=== PATIENT | female | born 1995 | race Caucasian/White ===

== ENCOUNTER 2017-08-19 19:14 | Emergency (ER) | payer OTHER, SELFPAY ==
[2017-08-19 19:15] VITALS: BP 149/89; PULSE 82; RESP 16; TEMP 36.8; O2SAT 99; BMI 28.2
--- NOTE | 2017-08-19 19:30 | CT_ITS ---
STUDY: CT BRAIN WITHOUT CONTRAST REASON FOR EXAM: Female, 21 years old. Headache RADIATION DOSAGE (If Supplied By Facility): CTDIvol = ( 44.99 ) mGy, DLP = ( 796.11 ) mGycm TECHNIQUE: Transaxial CT imaging of the brain was performed without administration of intravenous contrast material. Individualized dose optimization techniques were used for this CT. COMPARISON: None. FINDINGS: Normal soft tissue structures. Normal calvarium. Normal size ventricles and extra-axial spaces for the patient's age. Normal white matter tracts of the cerebral hemispheres. Normal basal ganglia and thalami. Normal brainstem. Normal cerebellum. There is no intracranial hemorrhage. There are no findings of an acute ischemic infarction. Normal visualized paranasal sinuses. CT/Brain/Head without Contrast IMPRESSION: Normal unenhanced CT scan of the brain. Electronically Signed: Leighton Wadsworth MD at 20:20 EST , Service support ,
[2017-08-19] MEDS: proCHLORPERazine 10 MG/2 ML Vial IV (19:44)
[2017-08-19] MEDS: DiphenhydrAMINE 50 MG/ML Syringe 25 MG IV (19:44)
[2017-08-19] MEDS: Ketorolac 30 MG/ML Syringe IV (19:45)
[2017-08-19] MEDS: 0.9% Normal Saline 1,000 ML 1000 ML IV (19:45)
--- NOTE | 2017-08-19 20:25 | ED.VISSUMM ---
- ER Visit Summary Date of Service: 08/19/17 Chief Complaint: [Headache] History of Present Illness: The patient is a 21 F [presents to the emergency department with a headache that started around 10 AM. Patient states the headache came on rather suddenly. Patient rates it currently as a 6 or 7 out of 10. Patient describes it as left side of her head behind her left eye. Patient has had some nausea with it but no vomiting. Patient denies any photophobia. Patient tells me that she has headaches most every day however this 1 is different in that she has some numbness and tingling to the left side of her face. Patient denies any weakness in her extremities. She denies any visual changes. She has felt somewhat lightheaded and near syncopal with it. She denies recent illness or head trauma.] Physical Examination: [HEENT-PERRLA, EOMI. Cranial nerves II through XII grossly intact. TMs clear. Mucous membranes moist. No adenopathy. Cardiovascular-regular rate and rhythm without murmur or ectopy Lungs-clear to auscultation, chest wall stable without crepitus or subcu emphysema Abdomen-normoactive bowel sounds, soft, nontender, no rebound or rigidity, no peritoneal signs. Neuro exam-finger to nose and heel to angel testing within normal limits, negative Romberg, negative pronator drift, fundi benign Extremities-intact ?4, normal range of motion, normal pulses, atraumatic] Test Results: [CT scan of the brain without contrast was normal] Emergency Department Course and Treatment: [Patient had a liter normal saline fluid bolus given as well as Compazine 10 mg IV, Toradol 30 mg IV, and Benadryl 25 mg IV. Patient's symptoms resolved.] Treatment Plan: [Patient will be referred to neurology on-call for follow-up.] Disposition: [Discharged to home in stable condition. Patient advised to return if worsening headache, difficulty with balance or speech, or condition should worsen in any way.] Impression: [Migrainous cephalgia] This note was generated with [employer] dictation software. It may contain incorrect words, spelling, and punctuation that were not noted in review of the chart prior to signing ED Disposition - Plan for ED Patient: Chief Complaint: Headache Referrals: Iglesia Ghosh [Primary Care Provider] -
--- NOTE | 2017-08-19 20:28 | ED.DEP ---
ED Disposition - Plan for ED Patient: Chief Complaint: Headache Instructions: ED Headache Migraine Referrals: Iglesia Ghosh [Primary Care Provider] - Rosa Mon MD [STAFF PHYSICIAN] - 3-5 Days
[2017-08-19 20:38] VITALS: BP 114/71; PULSE 85; RESP 16; O2SAT 96
== END 2017-08-19 20:40 | disposition home or self-care (01) ==
LOC: ED 19:34
PROVIDERS: Emergency Provider Emergency Medicine; Family Provider Family Medicine; PCP Family Medicine
DX: G43.909 Migraine, unspecified, not intractable, without status migrainosus (principal)
CPT/HCPCS: 70450; 96361; 96374; 96375; 99283

== ENCOUNTER → 2017-10-17 11:49 | Outpatient (CLI) | payer OTHER, SELFPAY ==
[2017-10-22 15:20] LABS: HPV Reflexed? NOT INDICATED
== END ==
PROVIDERS: Visit Provider Obstetrics & Gynecology
DX: Z12.4 Encounter for screening for malignant neoplasm of cervix (principal)
CPT/HCPCS: 88175; G0145

== ENCOUNTER → 2019-08-30 | Outpatient (CLI) | payer OTHER, SELFPAY ==
[2019-08-30 10:58] VITALS: BMI 27.6
--- NOTE | 2019-08-30 11:55 | RAD_ITS ---
STUDY: X-RAY CHEST REASON FOR EXAM: Female, 24 years old. cough and some flu like symptoms x 3 weeks -- pt has NOT had any fevers TECHNIQUE: PA and lateral views of the chest. COMPARISON: None. FINDINGS: The lungs are clear and expanded. There is no demonstrated pleural abnormality. Normal size heart. Normal mediastinum and dong. Normal visualized pulmonary arteries. Normal visualized aortic arch and descending thoracic aorta. Normal visualized thoracic spine. Normal visualized ribs, clavicles, and shoulders. There is no demonstrated abnormality of the visualized soft tissue structures of the upper abdomen. RAD/Chest PA and Lateral IMPRESSION: No acute cardiopulmonary process. Electronically Signed: Miquel Ludwig MD ([place]) at 12:08 EST , Service support ,
== END | disposition home or self-care (01) ==
LOC: RAD 11:41
PROVIDERS: PCP Family Medicine; Referring Provider Nurse Practitioner Family; Visit Provider Nurse Practitioner Family
DX: R05 Cough (principal)
CPT/HCPCS: 71046

== ENCOUNTER 2020-01-23 14:08 | Emergency (ER) | payer OTHER, SELFPAY ==
[2019-08-30 12:32] VITALS: BMI 28.2
[2020-01-23 14:09] VITALS: BP 131/91; PULSE 94; RESP 18; TEMP 36.9; O2SAT 99; BMI 28.9
--- NOTE | 2020-01-23 14:22 | ED.DCSUM_ITS ---
- ER Visit Summary Date of Service: 01/23/20 Chief Complaint: [Vomiting] History of Present Illness: The patient is a 24 F [presents the emergency department complaint of vomiting started 2 days ago. Patient states that she is 7 weeks and 3 days . She is G3, P2. Patient states that she had similar problems with her other pregnancies and had hyperemesis throughout her pregnancies. She denies any abdominal pain. She describes decreased urine output. Patient was sent over by her criminal investigative agent for IV fluids. Patient denies urinary symptoms such as dysuria, urgency, or frequency. Patient otherwise has no medical history.] Physical Examination: [HEENT-PERRLA, EOMI. Cranial nerves II through XII grossly intact. TMs clear. Mucous membranes slightly dry. No adenopathy. Cardiovascular-regular rate and rhythm without murmur or ectopy Lungs-clear to auscultation, chest wall stable without crepitus or subcu emphysema Abdomen-normoactive bowel sounds, soft, nontender, no rebound or rigidity, no peritoneal signs. Extremities-intact ?4, normal range of motion, normal pulses, atraumatic] Test Results: [Urinalysis obtained showed no signs of infection although she did have 150 ketones. Chemistries are pending.] Emergency Department Course and Treatment: [Received 2 L normal saline fluid boluses as well as Zofran 4 mg IV. Patient's nausea resolved and she was able to eat in department.] Treatment Plan: [Patient used Zofran prescribed to her by her criminal investigative agent as needed for nausea and vomiting. She is advised to push fluids.] Disposition: [Discharged home in stable condition] Impression: [Hyperemesis gravidarum] This note was generated with [employer] dictation software. It may contain incorrect words, spelling, and punctuation that were not noted in review of the chart prior to signing ED Disposition - Plan for ED Patient: Referrals: Iglesia Ghosh DO [Primary Care Provider] -
[2020-01-23] MEDS: 0.9% Normal Saline 1,000 ML 1000 ML IV ×2 (14:35→16:15)
[2020-01-23] MEDS: Ondansetron 4 MG/2 ML Vial IV (14:36)
[2020-01-23 15:23] LABS: Mucous, Urine 0 SEEN /hpf (<or=2+)
[2020-01-23 15:37] LABS: Color, Urine Yellow (Yellow); Glucose, Dipstick Normal (Normal); Leukocyte Esterase-Dipstick 25 /ul (Negative); Nitrite-Dipstick Negative (Negative); Occult Blood-Urine Negative /ul (Negative); Protein-Dipstick 15 mg/dl (Negative); Urine Bilirubin Dipstick Negative (Negative); Urine Clarity Sl Cldy (Clear); Urine Urobilinogen Normal (Normal)
[2020-01-23 15:38] LABS: Red Blood Cells-Urine 0-5 SEEN /hpf (0-5); Squamous Epithelial Cells - UA 0-5 SEEN /hpf (5-10); White Blood Cells 0-5 SEEN /hpf (0-5)
[2020-01-23 15:40] LABS: Amorphous Sediment 1+ URATE; Bacteria RARE /hpf (None Seen); Ketone-Dipstick 150 mg/dl (Negative)
--- NOTE | 2020-01-23 16:09 | ED.DEP ---
ED Disposition - Plan for ED Patient: Instructions: Hyperemesis Gravidarum (Severe Morning Sickness) Referrals: Iglesia Ghosh DO [Primary Care Provider] - As Needed
[2020-01-23 16:34] LABS: Anion Gap 6 (5-15); BUN 9 mg/dL (7-18); BUN/Creat Ratio 12.3 RATIO (10-20); Calcium,Total 8.8 mg/dL (8.5-10.1); Chloride 106 mmol/L (98-107); Creatinine, Serum 0.73 mg/dL (0.55-1.02); EST Glomerular Filtration Rate 103 mL/min (>60); Est Glom Filt Rate - Afr Amer 124 mL/min (>60); Estimated Creatinine Clearance 93.17 ml/min; Glucose 76 mg/dL (74-106); Potassium 3.9 mmol/L (3.5-5.1); Sodium Level 137 mmol/L (136-145)
[2020-01-23 17:19] VITALS: RESP 18
== END 2020-01-23 17:20 | disposition home or self-care (01) ==
LOC: ED 14:44
PROVIDERS: Emergency Provider Emergency Medicine; PCP Family Medicine
DX: O21.0 Mild hyperemesis gravidarum (principal)
CPT/HCPCS: 80048; 81001; 96361; 96374; 99283; J7030; A4216; J2405

== ENCOUNTER → 2020-01-29 | Outpatient (CLI) | payer OTHER, SELFPAY ==
[2020-01-23 14:09] VITALS: BMI 28.9
[2020-01-29 10:59] LABS: Color, Urine Yellow (Yellow); Glucose, Dipstick Normal (Normal); Ketone-Dipstick 5 mg/dl (Negative); Leukocyte Esterase-Dipstick 25 /ul (Negative); Nitrite-Dipstick Negative (Negative); Occult Blood-Urine 10 /ul (Negative); Protein-Dipstick 30 mg/dl (Negative); Specific Gravity, Urine 1.025 (1.002-1.030); Urine Bilirubin Dipstick Negative (Negative); Urine Clarity Sl. Cloudy (Clear); Urine Urobilinogen Normal (Normal)
[2020-01-29 11:11] LABS: Amphetamine Urine VISTA NEGATIVE (<1000 ng/mL); Barbiturate Urine VISTA NEGATIVE (< 200 ng/mL); Benzodiazepine Urine VISTA NEGATIVE (< 200 ng/mL); Cocaine Urine VISTA NEGATIVE (< 300 ng/mL); Ecstacy Urine VISTA NEGATIVE (< 500 ng/mL); Methadone Urine VISTA NEGATIVE (< 300 ng/mL); PCP Urine VISTA NEGATIVE (< 25 ng/mL); THC Urine VISTA NEGATIVE (< 50 ng/mL); Vista UDS pH Range 6
[2020-01-29 11:48] LABS: Absolute Lymphocyte Count 1.61 X10^3/uL (0.83-4.51); Absolute Neutrophil Count 6.8 X10^3/uL (2.0-7.7); Basophil# 0.04 X10^3/uL; Basophil% 0.4 % (0-1); Eosinophil# 0.05 X10^3/uL; Eosinophils% 0.5 % (0-5); Hematocrit 40.4 % (37-47); Hemoglobin 13.5 g/dL (12.0-15.0); Lymphocyte # 1.61 X10^3/ul (4.0); Lymphocyte % 17.3 % (19-41); Mean Corp Hgb Conc 33.4 g/dL (32-36); Mean Corpuscular Hgb 29.3 pg (27.0-32.0); Mean Corpuscular Volume 87.6 fL (81-99); Mean Platelet Vol. 10.1 fl (6.2-12.0); Monocyte# 0.74 X10^3/uL; NRBC Flagged by Analyzer 0 % (0-5); Neutrophil # 6.82 X10^3/uL (2.7-7.7); Neutrophil % 73.4 % (47-70); Platelet Count 302 K/mm3 (150-450); RBC Distribution Width CV 11.8 % (11.6-14.6); RBC Distribution Width SD 37.4 fl (35.1-43.9); Red Blood Count 4.61 M/mm3 (4.2-5.4); White Blood Count 9.3 K/mm3 (4.4-11.0)
[2020-01-29 12:04] LABS: Thyroid Stim Hormone (TSH) 1.23 uIU/mL (0.358-3.74)
[2020-01-31 09:38] LABS: HIV - WCH Non-Reactive (Nonreactive); Hepatitis B Surface Antigen Non-Reactive (Nonreactive); Hepatitis C Antibody Non-Reactive (Nonreactive); Rubella IgG 249.6 IU/mL
[2020-02-05 02:00] LABS: Prenatal RPR NONREACTIVE (NONREACTIVE)
== END | disposition home or self-care (01) ==
LOC: WOBLAB 09:49
PROVIDERS: PCP Family Medicine; Visit Provider Obstetrics & Gynecology
DX: Z34.81 Encounter for supervision of other normal pregnancy, first trimester (principal)
CPT/HCPCS: 36415; 80307; 81002; 84443; 85025; 86703; 86762; 86803; 87340

== ENCOUNTER 2020-02-02 13:05 | Emergency (ER) | payer OTHER, SELFPAY ==
[2020-02-02 13:06] VITALS: BP 125/85; PULSE 94; RESP 15; TEMP 36.8; O2SAT 97; BMI 29.1
[2020-02-02] MEDS: 0.9% Normal Saline 1,000 ML 1000 ML IV ×2 (13:32→14:32)
[2020-02-02] MEDS: proMETHazine 25 MG/ML Syringe 6.25 MG IV (13:32)
--- NOTE | 2020-02-02 13:48 | ED.DCSUM_ITS ---
History of Present Illness Chief Complaint: Nausea/Vomiting Informant: Patient Onset: Days Context: Gradual Onset Timing: Intermittent Current Severity: Moderate Maximum Severity: Moderate Narrative: The patient is a 24-year-old female who is G3, P2 at approximately 9 weeks gestation that presents to the emergency department with nausea and vomiting. Patient has had hyperemesis with all of her pregnancies. She is currently on Zofran. She states that sometimes, it will control her emesis, but other times it does not. She states that she is vomited multiple times today. She does describe a mild frontal headache from vomiting. She denies abdominal pain. She is had no vaginal bleeding or discharge. She has been in contact with her COOPERAGE SHOP SUPERVISOR who referred her to the emergency department for hydration. Prior similar symptoms: Yes Recent Illness/Hospitalization: No Past Medical History - Allergies and Home Meds Allergies/Adverse Reactions: Allergies No Known Allergies Allergy (Verified 02/02/20 13:09) Primary Care Physician: Iglesia Ghosh DO [Primary Care Provider] - Prior records reviewed: Yes Past Medical History: None Surgical History: noncontributory Smoking Status: Never smoker Review of Systems General: Denies: Chills, Fever, Sweats Eyes: Denies: Visual changes - bilaterally, Diplopia ENT: Denies: Rhinorrhea, Sore throat Cardiovascular: Denies: Chest pain, Palpitations Respiratory: Denies: Dyspnea, Cough, Dyspnea on exertion Gastrointestinal: Reports: Nausea, Vomiting. Denies: Abdominal pain, Diarrhea, Melena, Hematochezia Genitourinary: Denies: Dysuria, Hematuria, Frequency Musculoskeletal: Denies: Back pain, Extremity Pain Skin: Denies: Rash, Wounds Neurological: Denies: Headache, Weakness, Numbness Physical Exam Vital Signs/Narrative: Vital Signs Temp Pulse Resp BP Pulse Ox 02/02/20 13:06 98.3 F 94 15 125/85 H 97 Inital Vital Signs reviewed: Yes General: Well nourished, Well developed, No Acute Distress Head: Normocephalic, Atraumatic Eyes: Perrl, EOMI ENT: Moist mucous membranes, No rhinorrhea Neck: Supple, Nontender Cardiovascular: Regular rate, Regular rhythm, No murmurs Respiratory: No distress, CTA bilaterally, Chest nontender Abdomen: Soft, Nontender, Nondistended, Normal bowel sounds Back: Nontender, Normal Inspection Extremities: Nontender, No edema Skin: Normal color, No rash Neurological: Alert, Oriented x3, Cranial nerves II-XII grossly intact, Normal Strength, Normal Sensation Psychological: Normal affect, Normal Mood Diagnostic/Tx/Re-eval - Medical Decision Making The patient presents with symptoms that are consistent with her history of hyperemesis. The plan will be to check BMP, give her 2 L of fluids, and Phenergan. As long as she is feeling improved after hydration and has no significant electrolyte abnormalities, I do feel that she will be safe to follow-up with her COOPERAGE SHOP SUPERVISOR as scheduled. She is comfortable this plan of care. Impression 1. Hyperemesis ED Disposition - Plan for ED Patient: Instructions: ED Preg Morning Sickness Referrals: Iglesia Ghosh DO [Primary Care Provider] -
[2020-02-02 14:04] LABS: Anion Gap 5 (5-15); BUN 7 mg/dL (7-18); BUN/Creat Ratio 7.8 RATIO (10-20); Calcium,Total 9.1 mg/dL (8.5-10.1); Chloride 104 mmol/L (98-107); EST Glomerular Filtration Rate 81 mL/min (>60); Est Glom Filt Rate - Afr Amer 98 mL/min (>60); Estimated Creatinine Clearance 75.58 ml/min; Glucose 82 mg/dL (74-106); Potassium 3.7 mmol/L (3.5-5.1); Sodium Level 134 mmol/L (136-145)
[2020-02-02] MEDS: Acetaminophen 500 MG Tablet 1000 MG PO (15:46)
[2020-02-02] MEDS: proMETHazine 25 MG/ML Syringe 6.25 MG IM (15:46)
[2020-02-02 15:50] VITALS: BP 125/75; PULSE 89; RESP 17; O2SAT 100
[2020-02-02 17:16] VITALS: BP 108/77; PULSE 56; RESP 16; O2SAT 97
== END 2020-02-02 17:17 | disposition home or self-care (01) ==
LOC: ED 13:42
PROVIDERS: Emergency Provider Emergency Medicine; PCP Family Medicine
DX: O21.9 Vomiting of pregnancy, unspecified (principal); Z3A.09 9 weeks gestation of pregnancy
CPT/HCPCS: 80048; 96361; 96372; 96374; 99283; J7030

== ENCOUNTER 2020-02-25 15:13 | Emergency (ER) | payer OTHER, SELFPAY ==
[2020-02-25 15:14] VITALS: BP 123/91; PULSE 110; RESP 14; TEMP 37.2; O2SAT 99; BMI 27.1
[2020-02-25] MEDS: 0.9% Normal Saline 1,000 ML 999 ML IV (15:56)
[2020-02-25] MEDS: proMETHazine 25 MG/ML Syringe 12.5 MG IM (15:56)
--- NOTE | 2020-02-25 16:33 | ED.DCSUM_ITS ---
History of Present Illness Chief Complaint: Nausea/Vomiting Informant: Patient Narrative: 24-year-old female presenting with nausea and vomiting. She is 12 weeks . She has confirmed intrauterine . She states that for the last 12 weeks she has had nausea and vomiting. She is sent to the ER by her weight loss sales consultant to have IV fluids. She states that he did not set her up to have outpatient fluids and treatment but when she gets to where she is feeling dehydrated she comes to the emergency room. She is not had fever, chills. She denies cough or shortness of breath. She has no leg swelling. She states that she has known hyperemesis gravidarum and she takes Phenergan and Zofran at home as much as she can. She does not have abdominal pain, dysuria, urinary frequency. Past Medical History - Allergies and Home Meds Allergies/Adverse Reactions: Allergies No Known Allergies Allergy (Verified 02/25/20 15:14) Primary Care Physician: Iglesia Ghosh DO [Primary Care Provider] - Prior records reviewed: Yes Past Medical History: None Surgical History: noncontributory Lives: Spouse/ Significant Other Smoking Status: Never smoker Alcohol: None Drugs: None Review of Systems General: Denies: Chills, Fever, Sweats Eyes: Denies: Visual changes - bilaterally, Diplopia ENT: Denies: Rhinorrhea, Sore throat Cardiovascular: Denies: Chest pain, Palpitations Respiratory: Denies: Dyspnea, Cough, Dyspnea on exertion Gastrointestinal: Reports: Nausea, Vomiting. Denies: Abdominal pain, Diarrhea, Melena, Hematochezia Genitourinary: Denies: Dysuria, Hematuria, Frequency Musculoskeletal: Denies: Back pain, Extremity Pain Skin: Denies: Rash, Abscess Neurological: Denies: Headache Physical Exam Vital Signs/Narrative: Vital Signs Temp Pulse Resp BP Pulse Ox 02/25/20 15:14 98.9 F 110 H 14 123/91 H 99 Inital Vital Signs reviewed: Yes General: Well nourished, Well developed, No Acute Distress Head: Normocephalic Eyes: Perrl, EOMI ENT: Moist mucous membranes Neck: Supple Cardiovascular: Regular rate, Regular rhythm Respiratory: No distress, CTA bilaterally Abdomen: Soft Back: Nontender Extremities: Nontender Skin: Normal color, No rash Neurological: Alert, Oriented x3 Psychological: Normal affect Diagnostic/Tx/Re-eval Laboratory Data 02/25/20 16:39 Urine Color Yellow Urine Clarity Clear Urine pH 6.0 Ur Specific Raymond 1.025 Urine Protein 15 H Urine Glucose (UA) Normal Urine Ketones 150 H Urine Occult Blood Negative Urine Nitrite Negative Urine Bilirubin Negative Urine Urobilinogen Normal Ur Leukocyte Esterase 25 H Urine RBC 0-5 SEEN Urine WBC 0-5 SEEN Ur Squamous Epith Cells 0-5 SEEN Urine Bacteria 1+ Urine Mucus 1+ - Medical Decision Making Patient was seen and evaluated on arrival for ongoing nausea and vomiting secondary to . She was given Phenergan IM as well as a liter of IV fluids and she did feel improved on reevaluation. Urinalysis is negative for infection but does show ketones consistent with her emesis gravidarum. Patient is comfortable being discharged home at this time will return as needed further treatment. Impression: 1. Hyperemesis gravidarum ED Disposition - Plan for ED Patient: Disposition: Home or Assisted Living Instructions: Hyperemesis Gravidarum (Severe Morning Sickness) Referrals: Iglesia Ghosh DO [Primary Care Provider] -
[2020-02-25 17:13] LABS: Color, Urine Yellow (Yellow); Glucose, Dipstick Normal (Normal); Leukocyte Esterase-Dipstick 25 /ul (Negative); Nitrite-Dipstick Negative (Negative); Occult Blood-Urine Negative /ul (Negative); Protein-Dipstick 15 mg/dl (Negative); Specific Gravity, Urine 1.025 (1.002-1.030); Urine Bilirubin Dipstick Negative (Negative); Urine Clarity Clear (Clear); Urine Urobilinogen Normal (Normal)
[2020-02-25 17:45] LABS: Ketone-Dipstick 150 mg/dl (Negative)
[2020-02-25 17:46] LABS: Bacteria 1+ /hpf (None Seen); Mucous, Urine 1+ /hpf (<or=2+); Red Blood Cells-Urine 0-5 SEEN /hpf (0-5); Squamous Epithelial Cells - UA 0-5 SEEN /hpf (5-10); White Blood Cells 0-5 SEEN /hpf (0-5)
[2020-02-25 18:36] VITALS: BP 125/83; PULSE 96; RESP 18; O2SAT 100
[2020-02-25 20:06] VITALS: BP 122/84; PULSE 89; RESP 16; O2SAT 97
== END 2020-02-25 20:07 | disposition home or self-care (01) ==
PROVIDERS: Emergency Provider Student in an Organized Health Care Education/Training Program; PCP Family Medicine
DX: O21.0 Mild hyperemesis gravidarum (principal); Z3A.12 12 weeks gestation of pregnancy
CPT/HCPCS: 81001; 87086; 87088; 96360; 96372; 99283; J7030; J2405

== ENCOUNTER 2020-03-21 03:31 | Emergency (ER) | payer OTHER, SELFPAY ==
[2020-03-21 03:31] VITALS: BP 146/87; PULSE 117; RESP 18; TEMP 36.6; O2SAT 96; BMI 27.1
--- NOTE | 2020-03-21 03:54 | US_ITS ---
STUDY: SECOND AND THIRD TRIMESTER OBSTETRICAL ULTRASOUND - LIMITED REASON FOR EXAM: Female, 24 years old threatened LMP: 12/02/2019 PRIOR ULTRASOUND: None. TECHNIQUE: Transabdominal and Transvaginal TECHNICAL QUALITY: Adequate. FINDINGS: There is a single intrauterine fetus. The fetus is in a cephalic presentation. There is demonstrated cardiac activity with a heart rate of 161 bpm. There is a normal amniotic fluid volume. The largest amniotic fluid pocket measures cm. The amniotic fluid index (JI) is cm. The placenta is anterior in location and is not low lying. There are Grade 0 placental changes. The cervix measures 3.2 cm cm in length. BIOMETRY: BPD: 3.1 cm: 15 weeks, 5 days HC: 11.4 cm: 15 weeks, 4 days AC: 9.0 cm: 15 weeks, 1 days FL: 1.7 cm: 15 weeks, 0 days Age by LMP: 15 weeks, 5 days. CHUCK by LMP: 09/07/2020. age by current US: 15 weeks, 2 days. CHUCK by current US: 09/10/2020. Estimated weight: 117 grams, +/- 18 grams, percentile. Gender: US/OB Limited With Biometrics IMPRESSION: Living intrauterine of 15 weeks 2 days as described above Electronically Signed: Phong Watkins MD at 7:12 EDT Tel , Service support , Refer to OB ultrasound. Electronically Signed: Phong Watkins MD at 7:12 EDT Tel , Service support ,
[2020-03-21 04:33] LABS: Absolute Lymphocyte Count 2.12 X10^3/uL (0.83-4.51); Absolute Neutrophil Count 6.1 X10^3/uL (2.0-7.7); Basophil# 0.03 X10^3/uL; Basophil% 0.3 % (0-1); Eosinophil# 0.12 X10^3/uL; Eosinophils% 1.3 % (0-5); Hematocrit 37.2 % (37-47); Hemoglobin 12.8 g/dL (12.0-15.0); Lymphocyte # 2.12 X10^3/ul (4.0); Lymphocyte % 23.6 % (19-41); Mean Corp Hgb Conc 34.4 g/dL (32-36); Mean Corpuscular Hgb 29.4 pg (27.0-32.0); Mean Corpuscular Volume 85.5 fL (81-99); Mean Platelet Vol. 9.5 fl (6.2-12.0); Monocyte# 0.63 X10^3/uL; NRBC Flagged by Analyzer 0 % (0-5); Neutrophil # 6.06 X10^3/uL (2.7-7.7); Neutrophil % 67.6 % (47-70); Platelet Count 273 K/mm3 (150-450); RBC Distribution Width CV 12.5 % (11.6-14.6); Red Blood Count 4.35 M/mm3 (4.2-5.4)
--- NOTE | 2020-03-21 04:38 | ED.DCSUM_ITS ---
- ER Visit Summary Date of Service: 03/21/20 Chief Complaint: Vaginal bleeding History of Present Illness: The patient is a 24 F who presents with vaginal bleeding that began this morning. Patient states she got up to use the restroom and noted some bleeding. Patient states she is approximately 15 weeks . Patient admits to some mild suprapubic pain. Patient denies any cramping. Patient denies passing any clots or tissue. Patient denies any dysuria. Patient is 3 para 2. Patient denies any prior complications with previous pregnancies. Patient states she had some hyperemesis gravidarum in her first trimester with this . Patient states she still has some intermittent nausea but it is improving compared to the first trimester. Physical Examination: Vital signs are stable except for mild tachycardia of 117. Patient is afebrile. Patient is in no acute distress. Oral mucosa is pink and moist. Neck is supple. Trachea is midline. There is no JVD. Heart was regular rate and rhythm. Lungs are clear and equal bilaterally. Abdomen is soft. Bowel sounds are normal. There is no tenderness. There is no rebound or guarding noted. Cranial nerves II through XII are intact. There are no focal motor or sensory deficits noted. Extremities are intact. There is no calf tenderness or edema. Test Results: CBC was within normal limits. Urinalysis is ordered and does not show any evidence of urinary tract infection. Quantitative hCG was obtained and is pending. Pelvic ultrasound was ordered and is pending. Emergency Department Course and Treatment: [id number] ultrasound was performed. I was able to identify the heart rate of approximately 140 bpm. Disposition: Care of the patient was turned over to the oncoming physician. Impression: 1. Threatened spontaneous This note was generated with [employer] dictation software. It may contain incorrect words, spelling, and punctuation that were not noted in review of the chart prior to signing ED Disposition - Plan for ED Patient: Diagnosis: Threatened miscarriage Instructions: ED Possible Miscarriage Threatened Referrals: Iglesia Ghosh DO [Primary Care Provider] - 5-7 Days Elvira Sims CNM [Certified Nurse [employer] Worker] - 2 Days
[2020-03-21 06:41] VITALS: BP 123/80; PULSE 89; RESP 18; O2SAT 98
[2020-03-21 06:48] LABS: Bacteria 0 SEEN /hpf (None Seen); Mucous, Urine 0 SEEN /hpf (<or=2+); Red Blood Cells-Urine 0 SEEN /hpf (0-5); White Blood Cells 0 SEEN /hpf (0-5)
[2020-03-21 06:50] LABS: Color, Urine Yellow (Yellow); Glucose, Dipstick Normal (Normal); Ketone-Dipstick 50 mg/dl (Negative); Leukocyte Esterase-Dipstick Negative /ul (Negative); Nitrite-Dipstick Negative (Negative); Occult Blood-Urine 250 /ul (Negative); Protein-Dipstick 15 mg/dl (Negative); Specific Gravity, Urine 1.015 (1.002-1.030); Urine Bilirubin Dipstick Negative (Negative); Urine Clarity Sl. Cloudy (Clear); Urine Urobilinogen Normal (Normal)
[2020-03-21 06:58] LABS: Squamous Epithelial Cells - UA 10-25 SEEN /hpf (5-10)
[2020-03-21 07:32] LABS: hCG Titer Quant., Serum 37097 mIU/mL (1-3)
--- NOTE | 2020-03-21 07:55 | ED.VIS.GEN ---
History of Present Illness Chief Complaint: Vag Bld, Preg Past Medical History - Allergies and Home Meds Allergies/Adverse Reactions: Allergies No Known Allergies Allergy (Verified 03/21/20 03:35) Primary Care Physician: Elvira Sims CNM [Certified Nurse Quality Improvement Engineer] - 2 Days Iglesia Ghosh DO [Primary Care Provider] - 5-7 Days Surgical History: noncontributory Smoking Status: Never smoker Physical Exam Vital Signs/Narrative: Vital Signs Pulse Resp BP Pulse Ox 03/21/20 06:41 89 18 123/80 H 98 ED Disposition - Plan for ED Patient: Diagnosis: Threatened miscarriage Instructions: ED Possible Miscarriage Threatened Referrals: Elvira Sims CNM [Certified Nurse Quality Improvement Engineer] - 2 Days Iglesia Ghosh DO [Primary Care Provider] - 5-7 Days
[2020-03-21 08:06] VITALS: BP 111/72; PULSE 89; RESP 16; O2SAT 100
== END 2020-03-21 08:07 | disposition home or self-care (01) ==
PROVIDERS: Emergency Provider Emergency Medicine; PCP Family Medicine
DX: O20.0 Threatened abortion (principal)
CPT/HCPCS: 36415; 76816; 76817; 81001; 84702; 85025; 86900; 86901; 99285; A4216

== ENCOUNTER → 2020-06-16 | Outpatient (CLI) | payer OTHER, SELFPAY ==
[2020-05-21 13:35] VITALS: BMI 28.3
== END | disposition home or self-care (01) ==
LOC: LABSPEC 06-18 15:06
PROVIDERS: PCP Family Medicine; Referring Provider Obstetrics & Gynecology; Visit Provider Obstetrics & Gynecology
DX: Z03.818 Encounter for observation for suspected exposure to other biological agents ruled out (principal)
CPT/HCPCS: 87635; C9803; U0003

== ENCOUNTER → 2020-06-24 13:02 | Outpatient (CLI) | payer OTHER, SELFPAY ==
[2020-05-21 13:35] VITALS: BMI 28.3
[2020-06-24 13:43] LABS: Absolute Lymphocyte Count 1.37 X10^3/uL (0.83-4.51); Absolute Neutrophil Count 8.9 X10^3/uL (2.0-7.7); Basophil# 0.02 X10^3/uL; Basophil% 0.2 % (0-1); Eosinophil# 0.04 X10^3/uL; Eosinophils% 0.4 % (0-5); Hemoglobin 11.4 g/dL (12.0-15.0); Lymphocyte # 1.37 X10^3/ul (4.0); Lymphocyte % 12.5 % (19-41); Mean Corp Hgb Conc 34.5 g/dL (32-36); Mean Corpuscular Hgb 29.7 pg (27.0-32.0); Mean Corpuscular Volume 85.9 fL (81-99); Mean Platelet Vol. 9.5 fl (6.2-12.0); Monocyte# 0.64 X10^3/uL; Monocyte% 5.8 % (0-10); NRBC Flagged by Analyzer 0 % (0-5); Neutrophil # 8.87 X10^3/uL (2.7-7.7); Neutrophil % 80.8 % (47-70); Platelet Count 278 K/mm3 (150-450); RBC Distribution Width CV 12.2 % (11.6-14.6); RBC Distribution Width SD 38.3 fl (35.1-43.9); Red Blood Count 3.84 M/mm3 (4.2-5.4)
[2020-06-24 14:01] LABS: Glucose Challenge Gest 1H 50g 101 mg/dL (70-140)
[2020-06-24 22:35] LABS: Chlamydia Trachomatis by PCR Negative (Negative); Neisserai gonorrhoeae by PCR Negative (Negative); Probe Check PASS; Sample Adequacy Control PASS; Specimen Processing Control PASS
== END ==
PROVIDERS: Nurse Practitioner Women's Health; PCP Family Medicine; Referring Provider Obstetrics & Gynecology; Visit Provider Obstetrics & Gynecology
DX: Z34.80 Encounter for supervision of other normal pregnancy, unspecified trimester (principal)
CPT/HCPCS: 36415; 82950; 85025; 86850; 86900; 86901; 87491; 87591

== ENCOUNTER → 2020-07-08 14:55 | Outpatient (CLI) | payer OTHER, SELFPAY ==
[2020-07-08 13:55] VITALS: BMI 28.0
--- NOTE | 2020-07-08 14:56 | CT_ITS ---
STUDY: CTA CHEST REASON FOR EXAM: Female, 24 years old. Tachycardia, SOB X 1.5 WEEKS, 31 weeks , patient shielded. RADIATION DOSAGE (If Supplied By Facility): CTDIvol = ( 9.26 ) mGy, DLP = ( 293.74 ) mGycm TECHNIQUE: The examination was performed with the intravenous administration of IV 100mL Isovue-370. Post-processing of the angiographic images was performed, with multiplanar reformation and 3D reconstruction. Individualized dose optimization techniques were used for this CT. COMPARISON: None. FINDINGS: Normal enhancement of the main pulmonary artery and right and left pulmonary arteries. Normal enhancement of the bilateral peripheral pulmonary arteries. There is no demonstrated pulmonary embolism. Normal thoracic aorta and visualized great vessels. There is no demonstrated aortic dissection. Normal heart and pericardium. Normal mediastinum. Normal hilar regions. Normal visualized trachea and bronchi. The lungs are well expanded. Normal pulmonary parenchyma. Normal pleura. Normal chest wall structures. Normal osseous structures. Normal visualized upper abdomen. CT/CTA Chest W/WO Contrast IMPRESSION: Normal CTA chest examination, without a demonstrated pulmonary embolism or arterial dissection. Electronically Signed: Phong Watkins MD at 16:38 EST Tel , Service support ,
== END ==
PROVIDERS: PCP Family Medicine; Referring Provider Obstetrics & Gynecology; Visit Provider Obstetrics & Gynecology
DX: R00.0 Tachycardia, unspecified (principal)
CPT/HCPCS: 71275; Q9967; A4216

== ENCOUNTER → 2020-07-22 | Outpatient (CLI) | payer OTHER, MEDICAID, SELFPAY ==
[2020-07-22 13:29] VITALS: BMI 28.7
[2020-07-22 14:35] LABS: Fetal Fibronectin Negative
== END | disposition home or self-care (01) ==
PROVIDERS: PCP Family Medicine; Visit Provider Nurse Practitioner Women's Health
DX: O60.00 Preterm labor without delivery, unspecified trimester (principal); Z3A.00 Weeks of gestation of pregnancy not specified
CPT/HCPCS: 82731; 87086

== ENCOUNTER → 2020-08-04 14:53 | Outpatient (CLI) | payer OTHER, MEDICAID, SELFPAY ==
[2020-08-04 12:50] VITALS: BMI 29.4
[2020-08-04 17:59] LABS: Thyroid Stim Hormone (TSH) 0.98 uIU/mL (0.358-3.74)
== END ==
PROVIDERS: Internal Medicine Cardiovascular Disease; PCP Family Medicine; Visit Provider Family Medicine
DX: R00.2 Palpitations (principal)
CPT/HCPCS: 36415; 84443

== ENCOUNTER 2020-08-09 15:35 | Outpatient (CLI) | payer OTHER, MEDICAID, SELFPAY ==
[2020-08-06 13:57] VITALS: BMI 29.5
[2020-08-09 15:46] VITALS: BP 117/70; PULSE 107
[2020-08-09 15:47] VITALS: PULSE 236; O2SAT 98
[2020-08-09 15:48] VITALS: PULSE 102; TEMP 36.7
[2020-08-09 15:53] VITALS: BMI 31.3
--- NOTE | 2020-08-09 18:35 | OB.TRI.PN ---
Progress Notes Date of Service: 08/09/20 Progress Note: pt seen for leg pain, reassuring FHTs and neg doppler of lower extremity dc home Multi Select Codes - Urinary/Genital Urinary/Genital CPT Codes: No Charge
== END 2020-08-09 16:40 | disposition home or self-care (01) ==
LOC: WPOUT 15:39 → WP 15:41
PROVIDERS: PCP Family Medicine; Referring Provider Obstetrics & Gynecology; Visit Provider Obstetrics & Gynecology
DX: O26.899 Other specified pregnancy related conditions, unspecified trimester (principal); M79.606 Pain in leg, unspecified; Z3A.00 Weeks of gestation of pregnancy not specified
CPT/HCPCS: 59025; 59050; 99218; G0378

== ENCOUNTER 2020-08-09 16:52 | Emergency (ER) | payer OTHER, MEDICAID, SELFPAY ==
[2020-08-09 15:53] VITALS: BMI 31.3
[2020-08-09 16:53] VITALS: BP 127/83; PULSE 105; RESP 18; TEMP 36.1; O2SAT 97; BMI 30.9
--- NOTE | 2020-08-09 17:04 | ED.DCSUM_ITS ---
History of Present Illness Chief Complaint: Lower Extremity Injury Informant: Patient Onset: Days Context: Gradual Onset Timing: Intermittent Current Severity: Moderate Maximum Severity: Moderate Narrative: The patient is a 24-year-old female who is approximately 36 weeks gestation the presents to the emergency department for right-sided calf pain. Patient states over the past week, she has noticed that she has had similar swelling in her lower extremities. She states over the past 2 days, she had more pain in her ankle and in the right posterior calf. She denies chest pain or shortness of breath. She has had no vaginal bleeding or discharge. She has no history of pulmonary embolus. She denies headache, visual change, orthopnea. She states she did discuss this with her skilled helper who sent her in for a DVT study. Prior similar symptoms: No Recent Illness/Hospitalization: No Past Medical History - Allergies and Home Meds Allergies/Adverse Reactions: Allergies Iodinated Contrast Media Allergy (Verified 08/09/20 16:52) vomitting Primary Care Physician: Iglesia Ghosh DO [Primary Care Provider] - Prior records reviewed: Yes Past Medical History: None Surgical History: noncontributory Smoking Status: Never smoker Review of Systems General: Denies: Chills, Fever, Sweats Eyes: Denies: Visual changes - bilaterally, Diplopia ENT: Denies: Rhinorrhea, Sore throat Cardiovascular: Denies: Chest pain, Palpitations Respiratory: Denies: Dyspnea, Cough, Dyspnea on exertion Gastrointestinal: Denies: Abdominal pain, Nausea, Vomiting, Diarrhea, Melena, Hematochezia Genitourinary: Denies: Dysuria, Hematuria, Frequency Musculoskeletal: Denies: Back pain, Extremity Pain Skin: Denies: Rash, Wounds Neurological: Denies: Headache, Weakness, Numbness Physical Exam Vital Signs/Narrative: Vital Signs Temp Pulse Resp BP Pulse Ox 08/09/20 16:53 96.9 F L 105 H 18 127/83 H 97 Inital Vital Signs reviewed: Yes General: Well nourished, Well developed, No Acute Distress Head: Normocephalic, Atraumatic Eyes: Perrl, EOMI ENT: Moist mucous membranes, No rhinorrhea Neck: Supple, Nontender Cardiovascular: Regular rate, Regular rhythm, No murmurs Respiratory: No distress, CTA bilaterally, Chest nontender Abdomen: Soft, Nontender, Nondistended, Normal bowel sounds Back: Nontender, Normal Inspection Extremities: Tenderness Skin: Normal color, No rash Neurological: Alert, Oriented x3, Cranial nerves II-XII grossly intact, Normal Strength, Normal Sensation Psychological: Normal affect, Normal Mood Diagnostic/Tx/Re-eval - Medical Decision Making Ultrasound of the lower extremity was obtained. This was unremarkable for DVT. Heart rates were obtained and were 130s and reactive. I did discuss this with Dr. Garfield Malik. I do feel that her edema is likely secondary to her advanced . She has no hypertension. I do not feel this represents preeclampsia. At this point, the patient be discharged home. Impression 1. Right calf pain 2. ED Disposition - Plan for ED Patient: Instructions: ED Peripheral Edema, Bilateral Referrals: Iglesia Ghosh DO [Primary Care Provider] -
--- NOTE | 2020-08-09 17:06 | US_ITS ---
STUDY: VENOUS DOPPLER ULTRASOUND - RIGHT LOWER EXTREMITY REASON FOR EXAM: Female, 24 years old. RT CALF PAIN 35 WEEKS TECHNIQUE: Ultrasound evaluation of the deep vein system to include woodson-scale imaging and compression was performed. Woodson-scale imaging and Doppler sonographic evaluation, including duplex spectral analysis and qualitative color flow sonography, was performed. COMPARISON: None. FINDINGS: Common Femoral Vein: Normal compression, spontaneity and augmentation. Normal color Doppler. Common Femoral Vein/Greater Saphenous Junction: Normal compression, spontaneity and augmentation. Normal color Doppler. Deep Femoral Vein: Normal compression, spontaneity and augmentation. Normal color Doppler. Femoral Proximal: Normal compression, spontaneity and augmentation. Normal color Doppler. Femoral Middle: Normal compression, spontaneity and augmentation. Normal color Doppler. Femoral Distal: Normal compression, spontaneity and augmentation. Normal color Doppler. Popliteal Vein: Normal compression, spontaneity and augmentation. Normal color Doppler. Posterior Tibial Vein: Normal compression, spontaneity and augmentation. Normal color Doppler. Peroneal Vein: Normal compression, spontaneity and augmentation. Normal color Doppler. US/Venous Duplex Imag/Limited/Uni IMPRESSION: No demonstrated DVT Electronically Signed: Fred Garibay MD at 17:59 EST , Service support ,
== END 2020-08-09 17:57 | disposition home or self-care (01) ==
LOC: ED 17:30
PROVIDERS: Emergency Provider Emergency Medicine; PCP Family Medicine
DX: O26.893 Other specified pregnancy related conditions, third trimester (principal); M79.661 Pain in right lower leg; Z3A.36 36 weeks gestation of pregnancy
CPT/HCPCS: 93971; 99282

== ENCOUNTER → 2020-08-20 | Outpatient (CLI) | payer OTHER, MEDICAID, SELFPAY ==
[2020-08-20 11:40] VITALS: BMI 30.6
== END | disposition home or self-care (01) ==
LOC: LABSPEC 16:45
PROVIDERS: PCP Family Medicine; Referring Provider Obstetrics & Gynecology; Visit Provider Obstetrics & Gynecology
DX: Z34.80 Encounter for supervision of other normal pregnancy, unspecified trimester (principal)
CPT/HCPCS: 87081

== ENCOUNTER 2020-08-26 15:55 | Outpatient (CLI) | payer OTHER, MEDICAID, SELFPAY ==
[2020-08-20 11:40] VITALS: BMI 30.6
[2020-08-26 16:05] VITALS: BMI 29.9
[2020-08-26 16:09] VITALS: BP 119/76; PULSE 118
[2020-08-26 16:12] VITALS: PULSE 110; O2SAT 97
--- NOTE | 2020-08-26 17:30 | OB.TRI.PN ---
Progress Notes Date of Service: 08/26/20 Progress Note: Patient presents for triage evaluation secondary to tractions. Patient vincent regularly initially when got here. Cervix was 170/-1. Patient walked for approximately 1 hour and contractions spaced out. Cervix was unchanged on 1 hour recheck and patient requested discharge to home. FHT: Moderate variability reactive no decelerations category I tracing [place]: 3-8 Contractions Assessment and plan: Reactive NST, reassuring maternal and status patient discharged to home to follow-up at next scheduled office visit. See problem list details for additional plan information. Multi Select Codes - Urinary/Genital Urinary/Genital CPT Codes: 17902-93 non-stress test Interp
== END 2020-08-26 17:15 | disposition home or self-care (01) ==
LOC: WPOUT 16:03 → WP 16:03
PROVIDERS: PCP Family Medicine; Referring Provider Obstetrics & Gynecology; Visit Provider Obstetrics & Gynecology
DX: Z34.90 Encounter for supervision of normal pregnancy, unspecified, unspecified trimester (principal)
CPT/HCPCS: 59025; 59050; 99218; G0378

== ENCOUNTER → 2020-08-27 11:05 | Outpatient (CLI) | payer OTHER, MEDICAID, SELFPAY ==
[2020-08-20 11:40] VITALS: BMI 30.6
[2020-08-26 16:05] VITALS: BMI 29.9
--- NOTE | 2020-08-27 11:09 | US_ITS ---
STUDY: SECOND AND THIRD TRIMESTER OBSTETRICAL ULTRASOUND - LIMITED REASON FOR EXAM: Female, 25 years old GROWTH LMP: 12/02/2019. PRIOR ULTRASOUND: Comparison is made with prior examination dated 03/21/2020. TECHNIQUE: Transabdominal TECHNICAL QUALITY: Adequate. FINDINGS: There is a single intrauterine fetus. The fetus is in a cephalic presentation. There is demonstrated cardiac activity with a heart rate of 147 bpm. There is a normal amniotic fluid volume. The largest amniotic fluid pocket measures 4.24 cm. The amniotic fluid index (JI) is 15.6 cm. The placenta is anterior in location and is not low lying. There are Grade 3 placental changes. The cervix was not measured due to the positioning. BIOMETRY: BPD: 9.24 cm: 37 weeks, 3 days HC: 32.41 cm: 36 weeks, 4 days AC: 33.08 cm: 36 weeks, 6 days FL: 7.16 cm: 36 weeks, 4 days Age by LMP: 38 weeks, 3 days. CHUCK by LMP: 09/07/2020. age by prior US: 38 weeks, 0 days. CHUCK by prior US: 09/10/2020. age by current US: 36 weeks, 5 days. CHUCK by current US: 09/19/2020. Estimated weight: 3128 grams, +/- 469 grams, 33 percentile. US/OB Limited With Biometrics IMPRESSION: Single live intrauterine gestation with a mean gestational age of 38 weeks. The measurements obtained today following with the normal expected range. Electronically Signed: Dustin Bateman MD at 13:25 EST , Service support ,
== END ==
PROVIDERS: PCP Family Medicine; Referring Provider Obstetrics & Gynecology; Visit Provider Obstetrics & Gynecology
DX: U07.1 COVID-19 (principal)
CPT/HCPCS: 76816

== ENCOUNTER 2020-09-03 11:50 | Outpatient (CLI) | payer OTHER, MEDICAID, SELFPAY ==
[2020-09-03] VITALS (7 sets, daily range): BP systolic 116–128; BP diastolic 73–83; PULSE 88–101; BMI 29.4; BMI 30.3
[2020-09-03 13:15] LABS: Hematocrit 35.1 % (37-47); Hemoglobin 11.2 g/dL (12.0-15.0); Mean Corp Hgb Conc 31.9 g/dL (32-36); Mean Corpuscular Hgb 26.2 pg (27.0-32.0); Mean Platelet Vol. 9.5 fl (6.2-12.0); Platelet Count 292 K/mm3 (150-450); RBC Distribution Width CV 13.2 % (11.6-14.6); RBC Distribution Width SD 39.3 fl (35.1-43.9); Red Blood Count 4.28 M/mm3 (4.2-5.4); White Blood Count 12.3 K/mm3 (4.4-11.0)
[2020-09-03 13:28] LABS: AST(SGOT) 13 U/L (15-37); Alanine Aminotransfer ALT/SGPT 16 U/L (13-56); Creatinine, Serum 0.76 mg/dL (0.55-1.02); EST Glomerular Filtration Rate 98 mL/min (>60); Est Glom Filt Rate - Afr Amer 118 mL/min (>60); Estimated Creatinine Clearance 92.79 ml/min; Partial Thromboplast Time 25.1 Seconds (24.1-36.2); Prothrombin Time (Protime)PT. 12.7 SECONDS (11.7-14.9)
[2020-09-03 13:36] LABS: Protein, Urine (Random) 25.9 mg/dL (<11.9); Protein:Creat Ratio 142 mg/g CRE (0-200)
--- NOTE | 2020-09-04 07:02 | OB.TRI.PN_ITS ---
Progress Notes Date of Service: 09/03/20 Progress Note: Patient presents for triage evaluation secondary to elevated bp in office FHT: 155Moderate variability reactive no decelerations category I tracing [place]: no regular Contractions Assessment and plan: repeat bps wnl and neg labs Reactive NST, reassuring maternal and status patient discharged to home to follow-up as scheduled. See problem list details for additional plan information. Laboratory Studies: Laboratory Tests 09/03/20 09/03/20 09/03/20 Range/Units 13:15 12:55 12:55 WBC (4.4-11.0) K/mm3 RBC (4.2-5.4) M/mm3 Hgb (12.0-15.0) g/dL Hct (37-47) % MCV (81-99) fL MCH (27.0-32.0) pg MCHC (32-36) g/dL RDW Std Deviation (35.1-43.9) fl RDW Coeff of Nichelle (11.6-14.6) % Plt Count (150-450) K/mm3 MPV (6.2-12.0) fl PT 12.7 (11.7-14.9) SECONDS INR 1.0 APTT 25.1 (24.1-36.2) Seconds Creatinine 0.76 (0.55-1.02) mg/dL Estim Creat Clear Calc 92.79 ml/min Est GFR (MDRD) Af Amer 118 (>60) mL/min Est GFR (MDRD) Non-Af 98 (>60) mL/min Uric Acid 5.0 (2.6-6.0) mg/dL AST 13 L (15-37) U/L ALT 16 (13-56) U/L U Random Total Protein 25.9 H (<11.9) mg/dL Urine Creatinine 183.00 (NO RANGE EST.) mg/dL Protein/Creatinin Ratio 142 (0-200) mg/g CRE 09/03/20 Range/Units 12:55 WBC 12.3 H (4.4-11.0) K/mm3 RBC 4.28 (4.2-5.4) M/mm3 Hgb 11.2 L (12.0-15.0) g/dL Hct 35.1 L (37-47) % MCV 82.0 (81-99) fL MCH 26.2 L (27.0-32.0) pg MCHC 31.9 L (32-36) g/dL RDW Std Deviation 39.3 (35.1-43.9) fl RDW Coeff of Nichelle 13.2 (11.6-14.6) % Plt Count 292 (150-450) K/mm3 MPV 9.5 (6.2-12.0) fl PT (11.7-14.9) SECONDS INR APTT (24.1-36.2) Seconds Creatinine (0.55-1.02) mg/dL Estim Creat Clear Calc ml/min Est GFR (MDRD) Af Amer (>60) mL/min Est GFR (MDRD) Non-Af (>60) mL/min Uric Acid (2.6-6.0) mg/dL AST (15-37) U/L ALT (13-56) U/L U Random Total Protein (<11.9) mg/dL Urine Creatinine (NO RANGE EST.) mg/dL Protein/Creatinin Ratio (0-200) mg/g CRE Multi Select Codes - Urinary/Genital Urinary/Genital CPT Codes: 76469-74 non-stress test Interp
== END 2020-09-03 14:00 | disposition home or self-care (01) ==
LOC: WPOUT 11:59 → WP 12:00
PROVIDERS: Obstetrics & Gynecology; PCP Family Medicine; Referring Provider Obstetrics & Gynecology; Visit Provider Obstetrics & Gynecology
DX: O99.419 Diseases of the circulatory system complicating pregnancy, unspecified trimester (principal); R03.0 Elevated blood-pressure reading, without diagnosis of hypertension; Z3A.00 Weeks of gestation of pregnancy not specified
CPT/HCPCS: 36415; 59050; 82565; 82570; 84156; 84450; 84460; 84550; 85027; 85610; 85730; 99218; G0378

== ENCOUNTER → 2020-09-06 13:06 | Outpatient (CLI) | payer OTHER, MEDICAID, SELFPAY ==
[2020-09-06 11:28] VITALS: BMI 30.6
--- NOTE | 2020-09-06 13:09 | US_ITS ---
STUDY: SECOND AND THIRD TRIMESTER OBSTETRICAL ULTRASOUND REASON FOR EXAM: Female, 25 years old uterine date size discrepancy LMP: 12/02/2019. TECHNIQUE: Transabdominal TECHNICAL QUALITY: Adequate. PRIOR ULTRASOUND: Comparison is made with prior examination dated 08/27/2020. FINDINGS: There is a single intrauterine fetus. The fetus is in a cephalic presentation. There is demonstrated cardiac activity with a heart rate of 126 bpm. There is a normal amniotic fluid volume. The largest amniotic fluid pocket measures 6.55 cm. The amniotic fluid index (JI) is 11.9 cm. The placenta is anterior in location and is not low lying. There are Grade 3 placental changes. The cervix length was not measured due to the head positioning. Tithe bilateral adnexal regions are normal. BIOMETRY: BPD: 9.26 cm: 37 weeks, 4 days HC: 33.2 cm: 37 weeks, 6 days AC: 35.6 on: 39 weeks, 3 days FL: 7.4 cm: 37 weeks, 5 days CI: 84% FL/BPD: 80% FL/HC: FL/AC: 21% HC/AC: 0.93 age by current US: 37 weeks, 4 days. CHUCK by current US: 09/23/2020. Estimated weight: 3625 grams, +/- 544 grams, 52 %. age by prior US: 38 weeks, 0 days. CHUCK by prior US: 09/19/2020. Age by LMP: 39 weeks, 6 days. CHUCK by LMP: 09/07/2020. ANATOMY: Gender: Cranium: Normal lateral ventricles. Normal choroid plexus. Normal cerebellum. Normal cisterna magna. Normal face, nose and lips. Chest: Normal 4-chamber heart. Abdomen/Pelvis: Normal diaphragm. Normal stomach. Normal abdominal wall. Normal cord insertion. Normal 3 vessel cord. Normal kidneys. Normal bladder. Spine: Normal cervical spine. Normal thoracic spine. Normal lumbar spine. Normal sacrum. Extremities: Normal bilateral upper extremities. Normal bilateral lower extremities. US/OB Limited With Biometrics IMPRESSION: Single live intrauterine gestation with a mean gestational age of 38 weeks. The measurements obtained today fall in the normal range. Electronically Signed: Dustin Bateman MD at 16:57 EST , Service support ,
== END ==
PROVIDERS: PCP Family Medicine; Referring Provider Obstetrics & Gynecology; Visit Provider Obstetrics & Gynecology
DX: O26.849 Uterine size-date discrepancy, unspecified trimester (principal); Z3A.00 Weeks of gestation of pregnancy not specified
CPT/HCPCS: 76816

== ENCOUNTER 2020-09-08 06:50 | Inpatient (IN) | payer OTHER, MEDICAID, SELFPAY ==
[2020-09-06 11:28] VITALS: BMI 30.6
[2020-09-08] VITALS (29 sets, daily range): BP systolic 102–148; BP diastolic 59–91; PULSE 82–107; RESP 16; TEMP 36.4–36.9; O2SAT 98–100; BMI 32.0
[2020-09-08] MEDS: Lactated Ringers 1,000 ML 200 ML IV ×2 (07:00→11:21)
[2020-09-08] MEDS: Lactated Ringers 500 ML 999 ML IV (07:01)
[2020-09-08 07:26] LABS: Absolute Lymphocyte Count 1.88 X10^3/uL (0.83-4.51); Absolute Neutrophil Count 9.6 X10^3/uL (2.0-7.7); Basophil# 0.02 X10^3/uL; Basophil% 0.2 % (0-1); Eosinophil# 0.06 X10^3/uL; Eosinophils% 0.5 % (0-5); Hematocrit 34.7 % (37-47); Hemoglobin 11.1 g/dL (12.0-15.0); Lymphocyte # 1.88 X10^3/ul (4.0); Lymphocyte % 15.1 % (19-41); Mean Corpuscular Hgb 26.1 pg (27.0-32.0); Mean Corpuscular Volume 81.6 fL (81-99); Mean Platelet Vol. 9.8 fl (6.2-12.0); Monocyte% 7.2 % (0-10); NRBC Flagged by Analyzer 0 % (0-5); Neutrophil # 9.56 X10^3/uL (2.7-7.7); Neutrophil % 76.6 % (47-70); Platelet Count 313 K/mm3 (150-450); RBC Distribution Width CV 13.2 % (11.6-14.6); RBC Distribution Width SD 38.7 fl (35.1-43.9); Red Blood Count 4.25 M/mm3 (4.2-5.4); White Blood Count 12.5 K/mm3 (4.4-11.0)
[2020-09-08 07:51] LABS: AST(SGOT) 12 U/L (15-37); Alanine Aminotransfer ALT/SGPT 16 U/L (13-56); Creatinine, Serum 0.74 mg/dL (0.55-1.02); EST Glomerular Filtration Rate 100 mL/min (>60); Est Glom Filt Rate - Afr Amer 121 mL/min (>60); Estimated Creatinine Clearance 91.12 ml/min; Uric Acid 4.5 mg/dL (2.6-6.0)
[2020-09-08 08:07] LABS: Protein:Creat Ratio 199 mg/g CRE (0-200)
[2020-09-08] MEDS: Ondansetron 4 MG/2 ML Vial IV (08:11)
[2020-09-08] MEDS: fentaNYL-bupivacaine (epidural) 100 ML BAG EPIDURAL (08:15)
[2020-09-08] MEDS: Oxytocin 30 units/NS 500 ml 30 UNITS/500 ML IV.SOLN IV (11:19)
[2020-09-08] MEDS: Oxytocin 30 units/NS 500 ml 30 UNITS/500 ML IV.SOLN 334 UNITS IV (12:13)
--- NOTE | 2020-09-08 13:05 | OP.PCM_ITS ---
Problem List (1) Active labor Status: Acute (2) 35 weeks gestation of Status: Acute Comment: electronic covid test ordered 08/05/2020 (scheduled for 09/03/20 at 1350) (3) Acute pharyngitis Status: Acute Qualifiers: Pharyngitis/tonsillitis etiology: unspecified etiology Qualified Code(s): J02.9 - Acute pharyngitis, unspecified (4) COVID-19 Status: Acute Comment: positive advised 81mg of daily aspirin (5) Hyperemesis gravidarum Status: Acute Comment: currently on Zofran (6) Status: Acute Qualifiers: Weeks of gestation: 39 weeks Qualified Code(s): Z3A.39 - 39 weeks gestation of Comment: LUZ from [employer], IOL scheduled for 09/14 @ 7am (7) Supervision of other normal Status: Acute Comment: PRR CHUCK 09/07/20 girl PC: Min Sheth Spouse: Kenney (8) Uterine size-date discrepancy, third trimester Status: Acute Comment: nl US 09/06 (9) Vaginal bleeding during Status: Acute Comment: @16 weeks (10) Anxiety and depression Status: Chronic Comment: failed celexa in the past. recommend zoloft. encouraged counseling. Vaginal Delivery Maternal Presentation: Active Labor 25-year-old G3, P2 at 40 weeks gestation admitted in active labor. Patient made cervical change to complete dilation without augmentation. Amniotic Membrane Rupture Type: Artificial Amniotic Fluid Description: Clear Final CHUCK: 09/07/20 Gestational age: 40 Weeks and 1 Days Date of Procedure: 09/08/20 Pre-Operative Diagnosis: Term , active labor Post-Operative Diagnosis: Same Surgery/ Procedure Performed: Spontaneous Vaginal Delivery Anesthesiologist: Ilya Lazar Type of Anesthesia: Epidural Description of Procedure: Patient began pushing and delivered the head in the SHRUTHI presentation. The head was delivered atraumatically and no nuchal cord was noted. The anterior and posterior shoulders delivered without complication followed by the rest of the and the was placed on the maternal abdomen. Delayed cord clamping was employed for approximately 60 seconds. Cord was clamped and cut and gentle traction was applied to the cord and the placenta delivered spontaneously immediately following it was noted to be intact with three-vessel cord. The perineum and vagina were inspected and no laceration was noted. EBL was 100 cc. Patient and tolerated delivery well. Presentation: Vertex, SHRUTHI Placental Delivery Description: Spontaneous Placenta Disposition: [facility] Cord Vessel Description: 3 Vessels Cord Entanglement: None Drain: Gerber to straight drain Estimated Blood Loss: 100 cc Infant A gender: Female (1 minute): 8 (5 minute): 9 Episiotomy Description: None Laceration: None Medications given after delivery: IV Pitocin Complications: None Multi Select Codes - Urinary/Genital Urinary/Genital CPT Codes: 56914 Vaginal Delivery [facility]
[2020-09-08] MEDS: Acetaminophen 500 MG Tablet 1000 MG PO (14:14)
--- NOTE | 2020-09-08 16:48 | PCM.HPOB.BLA ---
- Problem List (1) Active labor Status: Acute (2) 35 weeks gestation of Status: Acute Comment: electronic covid test ordered 08/05/2020 (scheduled for 09/03/20 at 1350) (3) Acute pharyngitis Status: Acute Qualifiers: Pharyngitis/tonsillitis etiology: unspecified etiology Qualified Code(s): J02.9 - Acute pharyngitis, unspecified (4) COVID-19 Status: Acute Comment: positive advised 81mg of daily aspirin (5) Hyperemesis gravidarum Status: Acute Comment: currently on Zofran (6) Status: Acute Qualifiers: Weeks of gestation: 39 weeks Qualified Code(s): Z3A.39 - 39 weeks gestation of Comment: LUZ from [place] [employer], IOL scheduled for 09/14 @ 7am (7) Supervision of other normal Status: Acute Comment: PRR CHUCK 09/07/20 girl PC: Min Sheth Spouse: Kenney (8) Uterine size-date discrepancy, third trimester Status: Acute Comment: nl US 09/06 (9) Vaginal bleeding during Status: Acute Comment: @16 weeks (10) Anxiety and depression Status: Chronic Comment: failed celexa in the past. recommend zoloft. encouraged counseling. History and Physical Date of Admission: 09/08/20 Intake Vital Signs 09/06/20 Height 5 ft 3 in 09/06/20 Weight: 173 lb 09/06/20 BMI 30.6 09/06/20 BP 117/76 09/03/20 BMI 29.4 Intake Visit Reasons: 40 WK OB Chief Complaint: est ob Draw Furnace Tender Required: No Is patient in pain?: No Allergies Iodinated Contrast Media Allergy (Verified 09/06/20 11:28) vomitting Medications No122/Iron/Folic Acid [ Multi Tablet] 1 ea PO DAILY 02/02/20 [History Confirmed 09/06/20] sertraline 50 mg tablet 50 mg PO QDAY #30 tab 05/24/20 [Rx Confirmed 09/06/20] Last Menstral Period: 12/02/19 Zika: Zika virus screening: Negative : No PFSH PFSH Medical History Anxiety and depression (Chronic) Vaginal bleeding during (Acute) Hyperemesis gravidarum (Acute) Supervision of other normal (Acute) (Acute) Asthma (Chronic) Chronic neck and back pain (Chronic) IBS (irritable bowel syndrome) (Chronic) Chest pain (Resolved) Difficulty balancing (Resolved) Dyspnea (Resolved) Fatigue (Resolved) Palpitations (Resolved) Severe headache (Resolved) Surgical History History of shoulder surgery (Resolved ~2011) Family History Father VIJI (obstructive sleep apnea) Sister IBS (irritable bowel syndrome) Social History (Updated 09/06/20 @ 12:[address] Tammy Salazar MD) adopted: No household members: children housing: house number of children: 2 current occupational status: employed pets and animals: No Smoking Status: Never smoker second hand exposure: No alcohol intake: current substance use type: does not use seatbelt use: always do you feel safe at home: Yes additional social history: Kenney- [place] [facility] Pregancy History 3 Elective abortions Hx Para 2 Spontaneous abortions Hx # Term Pregnancies Ectopic pregnancies Hx # Pregnancies Multiple births # of living children 2 Past Pregnancies Del. Date Name GA/Weeks Outcome Route Bth Weight Infant Gen Labor Lgth Anesthesia Del [facility] Provider FOB Unknown 06/2013- Domenic 38 live - full term 6lbs 10oz Male 6 hours epidural [facility] Héctorshanique [place] Unknown 07/2015 Min 39 live - full term 7lbs 2oz Male 6 hours epidural [facility] Héctorshanique [place] Delivery Date: HG; Spinal headache MarilynShwetha fatima Delivery Date: no complications Shwetha Sanders HPI 40 WK OB: Details: SHWETHA WHITFIELD is a 25 year old who presents for routine OB visit. OB Visit CHUCK Calculator Estimated Delivery Date Method Current WG Current Estimate 09/07/20 LMP (Certain) 39w 6d Expected Delivery Route/Plan Labor Preferences- CB/BF classes: no labor support person: Kenney labor intervention preferences: [] pain management options preferred: epidural cut cord/dad catch: yes : yes PP control planned: pill discussed possible routes of delivery and associated risks: [] special requests: [] Specific Issue/Plans flu vaccine: declined tdap vaccine: declined rhogam: na LARC form signed: yes Problem list reviewed and updated with the most current plan of care details and appropriate orders placed. Relevant counseling for the gestational age provided. Continue routine care and follow up unless otherwise noted in visit notes/problem list details Initial Weight: Not Recorded Date EGA Weight BP Urine Prot Glucose FHR FuHt Pres Dilation Effaced St Visit Note 05/21/20 24w 3d 160 lb 145 25 SM- no vb lof good fm. LUZ from [place] [employer]. co anxiety and some depresison symtpoms, will start zoloft. HG stable with zofran. 06/24/20 29w 2d 162 lb 4 oz 108/66 Negative Negative 154 29 MH-nausea improved. No VB, LOF. Good FM. 28 wk labs today. 07/08/20 31w 2d 158 lb 8 oz 130/82 Negative Negative 145 31 GP - no ctx, LOF, VB, DFM. Reports constant shortness of breath over the past week with feeling like her heart is racing. Feels like pulse is high regardless of sitting or standing. Intermittently lightheaded. 07/22/20 33w 2d 162 lb 2 oz 136/80 Negative Negative 155 0 -4 MH-worki in for CTX since last pm. Now Q5-10min. Cervix thick and high. FBN collected. NST 08/06/20 35w 3d 167 lb 128/88 Negative Negative 145 35 SM- no vb lof good fm no regualr ctx 08/20/20 37w 3d 167 lb 6 oz 136/84 Negative Negative 145 37 Cephalic 1 SM- no vb lof good fm no reuglar ctx discussed covid diagnosis recently 08/27/20 38w 3d 172 lb 130/78 Negative Negative 140 38 Cephalic SM- no vb lof good fm 09/03/20 39w 3d 171 lb 6 oz 134/90 Negative Negative 145 39 Cephalic 2 50 -2 GP - no LOF, VB, DFM, ctx. CHERRY today with mild range BP. Sent to triage for evaluation. 09/06/20 39w 6d 173 lb 117/76 Negative Negative 135 36 Cephalic 2 50 -2 SM- fh low will get US today. no vb lof good fm no regualr ctx ACOG Second Trimester Second Trimester: Signs and Symptoms of Labor, Selecting a care provider, Reproductive Life Planning, Care Planning, Depression/Anxiety and Intimate Partner Violence; discussed Tobacco Cessation Diagnostics Diagnostics Diagnostics Hgb 11.2 g/dL (12.0-15.0) L 09/03/20 Hct 35.1 % (37-47) L 09/03/20 Details: HIV: Urine Culture: Sequential Screen: NIPT Screen: ROS Const Reports system reviewed and no additional complaints, except as docu Card Reports system reviewed and no additional complaints, except as docu Resp Reports system reviewed and no additional complaints, except as docu GI Reports system reviewed and no additional complaints, except as docu, Reports nausea Reports system reviewed and no additional complaints, except as docu Musc Reports system reviewed and no additional complaints, except as docu Exam Const General: cooperative, healthy appearing, comfortable, anxious HENMT Head: normal to inspection Nose: external nose normal Face and sinus: normal facial exam Neck Neck: normal visual inspection, full ROM, no lymphadenopathy Thyroid: thyroid normal Chest Chest palpation & inspection: normal inspection of the chest Resp Effort & Inspection: normal respiratory effort GI Inspection: normal to inspection Palpation: soft, other (gravid uterus) Other: infant vertex and appropriate size for gestational age Other: Cervical Exam: Extrem General: pedal edema Results POC Urinalysis 2 Dip (Clinic) Office Urine Glucose Negative Last Edit by Samantha Cancino on 09/06/20 11:34 Office Urine Protein Negative Last Edit by Samantha Cancino on 09/06/20 11:34 Assessment & Plan Problems 1. Uterine size-date discrepancy, third trimester O26.843 2. Z34.90 LUZ from [place] [employer] 3. Supervision of other normal Z34.80 PRR CHUCK 09/07/20 girl PC: Min Sheth Spouse: Kenney 4. Hyperemesis gravidarum O21.0 currently on Zofran 5. Anxiety and depression F41.9; F32.9 failed celexa in the past. recommend zoloft. encouraged counseling. 6. Acute pharyngitis J02.9 7. COVID-19 U07.1 positive advised 81mg of daily aspirin 8. Vaginal bleeding during O46.90 @16 weeks 9. 35 weeks gestation of Z3A.35 electronic covid test ordered 08/05/2020 (scheduled for 09/03/20 at 1350) Patient presents IAL, plan expectant management for , pitocin/AROM PRN if needed Pain management: plans epidural. GBS negative Management of any complications: none I have reviewed the [facility] and made any clinically relevant updates. UPDATE- I have seen the patient and performed any clinically relevant updates to the history and physical exam. Belle Wells MD
[2020-09-08] MEDS: Naproxen 250 MG Tablet 500 MG PO (21:06)
[2020-09-09 00:45] VITALS: BP 103/63; PULSE 88; RESP 14; TEMP 36.8
[2020-09-09 03:15] VITALS: BP 110/74; PULSE 87; RESP 16; TEMP 36.3
[2020-09-09 08:28] VITALS: BP 119/71; PULSE 83; RESP 16; TEMP 36.2
--- NOTE | 2020-09-09 08:30 | PN.OBGYN_ITS ---
Patient Problems: Active and Suspected Problems (Last Updated 09/07/20 @ 14:49 by Maribell Garcia) Active labor (Acute) Uterine size-date discrepancy, third trimester (Acute) nl US 09/06 COVID-19 (Acute) positive advised 81mg of daily aspirin Acute pharyngitis (Acute) 35 weeks gestation of (Acute) electronic covid test ordered 08/05/2020 (scheduled for 09/03/20 at 1350) Vaginal bleeding during (Acute) @16 weeks Hyperemesis gravidarum (Acute) currently on Zofran Supervision of other normal (Acute) PRR CHUCK 09/07/20 girl PC: Min Sheth Spouse: Kenney (Acute) LUZ from [place] [employer], IOL scheduled for 09/14 @ 7am Subjective: Patient doing well without complaints. Tolerating PO. Ambulating and voiding without difficulty. Breast feeding well. Denies chest pain, shortness of breath, calf pain/swelling, fevers, chills, lightheadedness. - Physical Exam Vitals/I&O's: Vital Signs Temp Pulse Resp BP Pulse Ox 97.4 F L 87 16 110/74 99 09/09/20 03:15 09/09/20 03:15 09/09/20 03:15 09/09/20 03:15 09/08/20 16:00 Oxygen Delivery Method Room Air Weight: 175 lb Body Mass Index (BMI) 32.0 Intake and Output for Last 24 Hours 09/07/20 09/08/20 09/09/20 23:59 23:59 23:59 Intake Total 1931.79 / 1931.79 Output Total 900 / 900 Balance 1031.79 / 1031.79 General: Alert, Oriented x3, Cooperative, No apparent distress, Well developed, Well nourished HEENT: Atraumatic, PERRLA, EOMI, Normocephalic Neck: Supple, No JVD Lungs: Normal air movement Cardiovascular: Regular rate Abdomen: Soft, Non Tender, Non-Distended, - - fundus firm Extremities: No edema, No Calf Tenderness Neurological: Cranial nerves II-XII grossly intact, Neuro grossly intact Psych/Mental Status: Normal Affect, Appropriate Laboratory Results 09/08/20 07:00: Blood Type A POSITIVE, Antibody Screen NEGATIVE Current Medications Acetaminophen (Acetaminophen 500 Mg Tablet) 1,000 mg PO Q8H PRN PRN PRN Reason: Pain Score 1-3 Last Admin: 09/08/20 14:14 Dose: 1,000 mg Documented by: Bisacodyl (Bisacodyl 10 Mg Suppository) 10 mg RC UD PRN PRN Reason: If no BM Dibucaine (Dibucaine 30 Gm Tube) 1 applic TOPICAL TID PRN PRN; Protocol PRN Reason: Discomfort Hydrocortisone (Hydrocortisone 2.5% Crm) 1 applic TOPICAL TID PRN PRN; Protocol PRN Reason: Discomfort Methylergonovine Maleate (Methylergonovine 0.2 Mg/Ml Ampul) 0.2 mg IM X1 PRN PRN Reason: Excess bleeding/uterine atony Naproxen (Naproxen 250 Mg Tablet) 500 mg PO Q8H PRN PRN PRN Reason: Pain Score 1-3 Last Admin: 09/08/20 21:06 Dose: 500 mg Documented by: Ondansetron HCl (Ondansetron 4 Mg/2 Ml Vial) 4 mg IV Q4H PRN PRN PRN Reason: Nausea Oxycodone HCl (Oxycodone 5 Mg Tablet) 5 - 10 mg PO Q4H PRN PRN PRN Reason: Pain Score 4-10 Senna/Docusate Sodium (Senna/Docusate Sodium 1 Tablet) 1 - 2 tablet PO DAILY PRN PRN PRN Reason: Constipation Sertraline HCl (Sertraline 50 Mg Tablet) 50 mg PO DAILY NICANOR Simethicone (Simethicone 80 Mg Tablet) 80 mg PO PCHS PRN PRN Reason: Indigestion/Stomach pain Sodium Chloride (0.9% Saline Lock 10 Ml Syringe) 5 - 15 ml IV UD PRN PRN Reason: SALINE FLUSH Medical Necessity - Tobacco Use Smoking Status: Never smoker Assessment/Plan All Active Problems (Last Updated 09/07/20 @ 14:49 by Maribell Garcia) Active labor (Acute) Uterine size-date discrepancy, third trimester (Acute) COVID-19 (Acute) Acute pharyngitis (Acute) 35 weeks gestation of (Acute) Vaginal bleeding during (Acute) Hyperemesis gravidarum (Acute) Supervision of other normal (Acute) (Acute) Dyspnea (Resolved) Palpitations (Resolved) s/p PPD # 1 1. routine post delivery care 2. breast feeding- support given 3. rh positive 4. rubella immune
--- NOTE | 2020-09-09 08:32 | DCINST_ITS ---
Discharge Diet: No Restrictions Discharge Activity: Return to Normal Activity, May not drive while taking narcotic pain medications., May Shower May resume sexual activity in: 4-6 weeks Additional Activity Instructions:: Nothing in the vagina for 4-6 weeks. You may return to work/school in 6 weeks. Call your doctor if your incision/area has: Continuous Slow Oozing, Sudden Increased Bleeding, Increased Pain/ Swelling, Increased Redness, Foul Smelling Discharge Additional Instructions: If you experience any of the following, contact your healthcare provider. * Bleeding that soaks a pad every hour for 2 hours * Fever 100.4 or higher * Unrelieved incision or abdominal pain * Swelling, redness, discharge or bleeding from your incision or episiotomy site * Your incision begins to separate * Problems urinating (including inability to urinate or burning while urinating). * Visual changes * Severe headache * Flu-like symptoms * Pain or redness in one of both of your breasts * Pain, warmth, tenderness or swelling in your legs, especially the calf area * Frequent nausea and vomiting * Symptoms of depression or anxiety If you experience any of the following, call 911 or go to the nearest Emergency Room. * Chest pain * Problems breathing * Seizure activity * Partial or complete paralysis of a body part, slurred speech, weakness or drooping of the face, or a sudden inability to walk or hold your balance Allergies/Adverse Reactions: Allergies Iodinated Contrast Media Allergy (Verified 09/08/20 07:38) vomitting Medications to take at Discharge No122/Iron/Folic Acid [ Multi Tablet] 1 ea PO DAILY 02/02/20 Sertraline HCl [Zoloft] 50 mg PO QDAY 09/08/20 When: Call to make an appointment with your doctor in 6 weeks. If you had elevated Blood Pressure or 4th degree laceration you will need to be seen in 2 weeks. Primary Care Physician: Iglesia Ghosh DO [Primary Care Provider] - Test Results: Test results from this visit will be discussed in further detail at your follow- up appointment, if applicable.
[2020-09-09] MEDS: Naproxen 250 MG Tablet 500 MG PO (08:47)
[2020-09-09] MEDS: Sertraline 50 MG Tablet PO (10:31)
[2020-09-09 13:02] VITALS: BP 127/89; PULSE 89; RESP 18; TEMP 36.5
--- NOTE | 2020-09-09 15:23 | CASEMGMT ---
Social Work Assessment Labor and Delivery Unit [facility] [place] [address] Phone number: [phone] Date of Referral: 09/09/2020 Time of Referral: [id number] Referred By: Dr. Diggs Date of Intervention: 09/09/2020 Time of Intervention: Approximately 4234-7585 Reason for Referral: Maternal history of anxiety, mother taking Zoloft. History obtained from: Medical records and mother of baby (MOB) Shwetha Brenner; father of baby (FOB) Kenney Méndez present for part of conversation. Household composition: MOB and FOB live together in a home, along with their older children. Home situation is reported to be safe and adequate. Patient's parent/guardian status: CARY is a 25-year-old single female involved with the FOB for the last 10 years. CARY denies any history of abuse or violence in this relationship. MOB and FOB now share 3 children together. Minor children include: Domenic (born June 2013), Min (born July 2015), and baby girl Flavia (born 09/08/2020). Medical History: CARY is 3, para 2 now 3 after delivering Flavia. care started in the first trimester at the [place] [facility] and then at 24 weeks transferred care to [place] [facility]. Flavia was born at 40 weeks gestation weighing 7 pounds 11 ounces. Apgars 8 and 9 at 1 and 5 minutes of life. Educational Status: CARY graduated from high school and has some college completed. No issues with reading, writing, or learning comprehension. Financial Status: CARY is currently staying at home. FOB is a prep room supervisor at a local [employer] opening. Infant Supplies: CARY reports to have all needed supplies for the infant including car seat, pack and play for sleeping, clothing, diapers, wipes. CARY plans to breast-feed and has a breast pump if needed. Childcare/Caregiver(s): CARY plans to be the primary caregiver, with help from the FOB when not working. Transportation: No issues or concerns. Programs/Agencies Involved: CARY has Medicaid through job and family services. Denies any other agency involvement. Not interested in a help me grow or with referral. CARY does have a history of counseling with [facility], specifically seeing Ambrose Sheehan. Children Services/Legal Issues: None reported. Behavioral Health Issues: Mental Health History: MOB reports history of depression and anxiety, denying any history of depression or anxiety with the other children. MOB does endorse that that her anxiety has increased during this and was started on medication. care record indicates that the MOB did not do well with Celexa. Currently being prescribed Zoloft daily. MOB reports uncertainty whether she feels the current dosage of Zoloft is working. Noted in the care record that MOB had a PHQ-9 score of 16 on 12/11/2019. And Archie depression screen score of 10 on 01/29/2020. Today, 09.09.2020, Archie depression screen score is a 12 which is indicative of likely depression. Refer to attached link for further details. MOB denies ever thinking of suicide or this ever being an option. Reports that does not want to . MOB endorses her depression and anxiety often revolve around negative thinking and thoughts regarding self-worth and confidence. Substance Use History: MOB denies any history of illicit substance use. Reports to drink socially, but not while . No reported tobacco use. Family History: No reported family history in MOB biological family. Reports did have a stepbrother who recently by overdose in August 2020. Drug Screens: Negative maternal drug screen on 01/29/2020. Family/Social Stressors: Unplanned but accepted . Limited support system outside of a few family members, with the FOB working long hours and being construction project engineer even when he is not working. MOB stepfather by overdose last month, and at the time MOB was diagnosed with COVID, so was unable to attend any type of services. Support Systems: MOB reports to have some help from her mother and [id number] for practical help. MOB reports to have quite a few siblings, but the support is not there as far as offering or much willingness and helping with the care of the children. MOB reports that her mother is her best friend and is a strong emotional support for the MOB. FOB will have the remainder of this week off to help MOB at home, transitioning with the baby and 2 older children. ASSESSMENT: Met with the MOB and FOB together, and then with MOB alone. Both parents contributed to conversation. When speaking to the MOB alone, Archie depression screen completed. Able to talk further with the MOB about depressive and anxiety symptoms and stressors. MOB talkative, and became tearful and cried during the conversation. MOB reports to have been more emotional since the of the baby and has cried several times. Educated MOB to the baby blues versus depression and anxiety. Offered supportive listening and reflection with the MOB, encouraging MOB to consider returning back to counseling for added support. MOB voiced that she will consider going back, that counseling was helpful when attending. MOB shared that she stopped going due to some concern the counselor would be disappointed in MOB for choices that MOB had recently made. Explored with MOB those choices. Discussed with MOB that a counselor is an objective person who should be a safe person to speak with and process choices/actions/reactions/concerns. Validated with the MOB that everybody is human, cannot be perfect all of the time. Explored with the MOB as to whether MOB feels the current antidepressant is working. MOB reports uncertainty. Explored whether MOB would be willing to have a medication adjustment if the doctor felt appropriate. MOB stated I'm willing to try anything. MOB voiced agreement for this short story writer to speak with the [facility] regarding this possibility. While the FOB was in the room this short story writer did go over some risk factors for depression and anxiety, and the importance of speaking up if symptoms arise. Reviewed with the MOB the idea of distress as a frausto factor to consider in seeking out additional support. Provided the MOB with packet on mood and anxiety disorders, which includes resources for additional support. Educated to the [facility] behavioral health program as another potential outlet for support. MOB receptive to accepting packet of information and a brochure on the outpatient program. MOB expressed appreciation for social services analyst coming to talk today. While supprot is limited in giving MOB time outside of the home and to herself, MOB is able to talk to her mom for emotional support. MOB also enjoys photography, taking pictures of family and friends, which is an outlet MOB finds enjoyment in. MOB was able to use humor appropriately during conversation with this short story writer. Affect constricted overall. Eye contact good. Motor activity and speech all within normal limits. MOB was observed to be attentive to the baby. MOB endorses feeling loving feelings towards the baby and excited to have a daughter. This short story writer spoke with OBGYN Dr. Wells regarding MOB's depression screen and stated willingness for medication adjustment if the physician felt appropriate. PLAN: MOB and infant to discharge home with support from the FOB. Information and resources provided for mood and anxiety disorders. MOB plans to remain on antidepressant medication timeframe, and voices willingness to consider returning back to counseling. No other services requested or indicated. -GIA Painter, AZAEL *Information documented in this assessment generated with [employer]*
== END 2020-09-09 16:05 | disposition home or self-care (01) | DRG 560 ==
PROVIDERS: Admitting Provider Obstetrics & Gynecology; PCP Family Medicine; Referring Provider Obstetrics & Gynecology; Visit Provider Obstetrics & Gynecology
DX: O80 Encounter for full-term uncomplicated delivery (principal); Z3A.40 40 weeks gestation of pregnancy; Z37.0 Single live birth
CPT/HCPCS: 59025; 59050; 82565; 82570; 84156; 84450; 84460; 84550; 85025; 86850; 86900; 86901; 99218; J7120; G0378; J2405

== ENCOUNTER → 2022-09-05 | Outpatient (CLI) | payer MEDICAID, SELFPAY ==
[2022-09-11 19:10] LABS: HPV Reflexed? NOT INDICATED
== END | disposition home or self-care (01) ==
LOC: LABSPEC 11:27
PROVIDERS: PCP Family Medicine; Visit Provider Obstetrics & Gynecology
DX: Z12.4 Encounter for screening for malignant neoplasm of cervix (principal)
CPT/HCPCS: 88175; G0145

== ENCOUNTER 2022-11-14 11:15 | Emergency (ER) | payer MEDICAID, SELFPAY ==
[2022-11-14 11:16] VITALS: BP 129/93; PULSE 81; RESP 16; TEMP 36.2; O2SAT 99; BMI 31.7
--- NOTE | 2022-11-14 11:30 | EX.ED.DYSGE1 ---
HPI History of Present Illness Chief Complaint: Chest Pain [facility] Medical History (Updated 11/14/22 @ 14:[address] Mitesh Saez, DO) Anxiety and depression Asthma Chest pain Chronic neck and back pain Difficulty balancing Dyspnea Fatigue Hyperemesis gravidarum IBS (irritable bowel syndrome) Palpitations Severe headache Supervision of other normal Vaginal bleeding during Home Medications NK 09/05/22 [History Last Taken Unknown] Allergy/AdvReac Type Severity Reaction Status Date / Time Iodinated Contrast Media Allergy vomitting Verified 09/05/22 09:57 Family History Father VIJI (obstructive sleep apnea) Sister IBS (irritable bowel syndrome) Surgical History History of shoulder surgery (~2011) Social History adopted: No household members: children housing: house number of children: 2 current occupational status: employed pets and animals: No Smoking Status: Never smoker second hand exposure: No alcohol intake: current substance use type: does not use seatbelt use: always do you feel safe at home: Yes additional social history: [facility] [employer] EXAM Physical Exam Const Vital Signs: 11/14/22 11:16 11/14/22 12:09 11/14/22 13:15 Temperature 97.2 F L Temperature Source Temporal Pulse Rate 81 75 Respiratory Rate 16 20 H Blood Pressure 129/93 H Blood Pressure Mean 105 Pulse Ox 99 Oxygen Delivery Method Room Air Nasal Cannula Room Air MDM MDM MDM Narrative Medical decision making narrative: HISTORY OF PRESENT ILLNESS: 27-year-old female here for chest pain. The patient states she has had 2 days of intermittent left-sided chest pain that she described as pressure. States pain radiates to her neck and left arm. Denies any ripping or tearing sensation. She denies any cough, she does note she saw a media center specialist 1 day ago who stated she does not have mastitis. Patient denies sudden onset of pain, no tearing sensation, no migratory symptoms, no new numbness, weakness or loss of sensation. Patient denies family history or personal history of Marfan syndrome or Kelly-Danlos. The patient denies recent surgery in the last 4 weeks or immobilization in the last 3 days, denies previous diagnosis of DVT or PE, hemoptysis, unilateral leg swelling or malignancy with treatment the last 6 months. No estrogen use noted. REVIEW OF SYSTEMS: Pertinent positives: Chest pain Pertinent negatives: Syncope, shortness of breath, cough, bleeding diathesis PHYSICAL EXAM: Nursing triage notes reviewed, Vital signs reviewed Constitutional: please see [facility] HENT: MMM Eyes: Pupils equal round and reactive to light, Extraocular muscles intact Neck: No stridor, no JVD, full neck ROM Lungs: Clear to auscultation, No wheezing or rales. No increased work of breathing, no conversational dyspnea, no accessory muscle use, no nasal flaring. No respiratory distress noted Heart: Regular rate and rhythm, No murmurs, No rubs and No gallops, 2+ distal pulses (radial, femoral, posterior tibial) in all extremities Abdomen: Soft, there is no tenderness, rigidity, rebound or guarding, no obvious peritoneal signs, no palpable pulsatile abdominal masses, no auscultated abdominal bruit : No CVAT Breast: No nipple retraction, no confluent erythema, no obvious mass fluctuance or induration to suggest breast abscess Extremities: No edema, no calf TTP. Neuro: No focal neurological deficits, cranial nerves II through XII intact, 5/5 strength in all extremities. Intact sensation to light touch in all extremities, 2+ reflexes bilateral patella tendons. Normal gait. No ataxia. Skin: No rash or lesions noted MEDICAL DECISION MAKING: Chief Complaint: Chest pain External records reviewed: No recent cardiac catheterizations, echocardiograms, or stress test noted in the chart [facility] Narrative: The patient was hemodynamically stable, afebrile, nontoxic. No focal cardiopulmonary abnormalities noted on exam. I considered the following differential diagnosis: ACS, arrhythmia, anemia, electrolyte abnormalities, PE, aortic dissection or mastitis No evidence on exam to suggest breast etiology. I considered PE however patient is a low risk Wells score, PERC negative have a low suspicion for PE. I also considered aortic dissection however patient had no historical factors such as Kelly-Danlos, Marfan syndrome or family history of connective tissue diseases. She had no pulse deficits, focal neurologic deficits. The pain is not described as ripping or tearing. I did obtain a broad lab and imaging work-up to further elucidate the etiology of the patient's complaints. The patient's EKG and troponin showed no evidence of myocardial ischemia. She was not significantly anemic. She had no significant electrolyte abnormalities. Repeat troponin was also negative. Chest x-ray that evidence of pneumonia, pneumothorax or other focal cardiopulmonary abnormality. No clear life-limiting etiology could be ascertained. Patient was told to take aspirin daily and follow the primary care physician for confirmatory outpatient testing given low risk heart score. I completed a HEART Score to screen for Major Adverse Cardiac Event (MACE) in this patient. The evidence indicates that the patient is very low risk for MACE and this is consistent with my clinical intuition. The risk of further workup or hospitalization for MACE is likely higher than the risk of the patient having a MACE. It is, therefore, in the patient?s best interest not to do additional emergent testing or to be hospitalized for MACE at this time. Shared Decision-Making No hospitalization indicated I have discussed with the patient my clinical impression and the result of the HEART Score to screen for MACE, as well as the risks of further testing and hospitalization. The HEART Score shows that the risk for MACE is less than 1%. Although the risk of MACE has not been completely eliminated, the risks of further testing or hospitalization for MACE likely exceed any potential benefit, and the patient agrees with not pursuing further emergent evaluation or hospitalization for MACE at this time. EKG without evidence of STEMI. Labs Factors affecting care: Anxiety, palpitations Social determinants of health: None History obtained from others: None Shared decision making: I will have a discussion with the patient and or visitors regarding risk/benefits of further testing or admission. They will be made aware of of the risk/benefits inherent in this decision they will be given the opportunity to voice understanding. Consults: None Lab Data Attestation: I reviewed the patient's lab results. Lab results narrative: EKG with normal sinus rhythm, normal axis, normal intervals, no STEMI CBC without leukocytosis, severe anemia, no thrombocytopenia. BMP without evidence of significant electrolyte abnormalities, no anion gap, no acute kidney injury. Troponin is negative, no evidence of myocardial ischemia. Delta troponin showed Labs: Laboratory Results - last 24 hr 11/14/22 11/14/22 11/14/22 12:12 12:12 14:15 WBC 6.3 RBC 4.79 Hgb 13.9 Hct 41.0 MCV 85.6 MCH 29.0 MCHC 33.9 RDW Std Deviation 38.2 RDW Coeff of Nichelle 12.3 Plt Count 292 MPV 9.3 Immature Gran % (Auto) 0.200 Neut % (Auto) 56.6 Lymph % (Auto) 33.7 Storey % (Auto) 7.5 Eos % (Auto) 1.7 Baso % (Auto) 0.3 Absolute Neuts (auto) 3.6 Absolute Lymphs (auto) 2.12 Nucleated RBC % 0 Sodium 139 Potassium 3.8 Chloride 109 H Carbon Dioxide 26.0 Anion Gap 4 L BUN 13 Creatinine 0.80 Estim Creat Clear Calc 82.80 Est GFR (MDRD) Af Amer 111 Est GFR (MDRD) Non-Af 91 BUN/Creatinine Ratio 16.4 Glucose 98 Calcium 9.1 Troponin I High Sens 3 < 3 L Radiography Chest X-Ray - ED: Read by ED Physician Diagnostic Testing: Clinical Impression(s) from Imaging Studies Chest X-Ray 11/14/22 12:25 IMPRESSION: Normal x-ray examination of the chest. Electronically Signed: Dustin Bateman MD at 12:47 EDT , I have personally reviewed the patient's chest x-ray. Chest x-ray is unremarkable for pulmonary edema, pneumothorax, pneumonia or focal cardiopulmonary abnormality. Discharge Plan Triage Chief Complaint: Chest Pain ED Provider: Mitesh Saez Dx/Rx/DC Orders Clinical Impression: Chest pain Instructions: Chest Pain [facility] Prescriptions: No Action NK Primary Care Provider: Care Physician,No Primary Referrals: Iglesia Ghosh DO [Non-Staff] - Activity Restrictions/Additional Instructions: Thank you for trusting us with your care today! Please take Tylenol (2 pills, 650 mg), ibuprofen (2 pills, 400 mg) every 6 hours as needed for pain and fever control. Please return to the emergency department if your symptoms change or worsen. Please follow with your primary care physician for further outpatient evaluation and management. Disposition Disposition: Home, Self Care
--- NOTE | 2022-11-14 12:07 | EKG12_ITS ---
Test Reason : CP Blood Pressure : / mmHG Vent. Rate : 075 BPM Atrial Rate : 075 BPM P-R Int : 148 ms QRS Dur : 074 ms QT Int : 372 ms P-R-T Axes : 021 028 011 degrees QTc Int : 415 ms Normal sinus rhythm Normal ECG Confirmed by DARRIUS HERNANDEZ, JAVI ([id number]), school photograph editor SUNSHINE WILLOUGHBY ([id number]) on 11/15/2022 12:54:43 P M Referred By: LEIA Confirmed By:WINDY RIZO MD
[2022-11-14] MEDS: Aspirin 81 MG TAB.CHEW 324 MG PO (12:13)
[2022-11-14 12:21] LABS: Absolute Lymphocyte Count 2.12 X10^3/uL (0.83-4.51); Absolute Neutrophil Count 3.6 X10^3/uL (2.0-7.7); Basophil# 0.02 X10^3/uL; Basophil% 0.3 % (0-1); Eosinophil# 0.11 X10^3/uL; Eosinophils% 1.7 % (0-5); Hemoglobin 13.9 g/dL (12.0-15.0); Lymphocyte # 2.12 X10^3/ul (0.83-4.51); Lymphocyte % 33.7 % (19-41); Mean Corp Hgb Conc 33.9 g/dL (32-36); Mean Corpuscular Volume 85.6 fL (81-99); Mean Platelet Vol. 9.3 fl (6.2-12.0); Monocyte# 0.47 X10^3/uL; Monocyte% 7.5 % (0-10); NRBC Flagged by Analyzer 0 % (0-5); Neutrophil # 3.56 X10^3/uL (2.7-7.7); Neutrophil % 56.6 % (47-70); Platelet Count 292 K/mm3 (150-450); RBC Distribution Width CV 12.3 % (11.6-14.6); RBC Distribution Width SD 38.2 fl (35.1-43.9); Red Blood Count 4.79 M/mm3 (4.2-5.4); White Blood Count 6.3 K/mm3 (4.4-11.0)
--- NOTE | 2022-11-14 12:25 | RAD_ITS ---
STUDY: X-RAY CHEST REASON FOR EXAM: Female, 27 years old. Chest pain TECHNIQUE: Single AP portable view of the chest. COMPARISON: Comparison is made with prior study August 30, 2019. FINDINGS: EKG electrodes are seen. The lungs are clear and expanded. There is no demonstrated pleural abnormality. Normal size heart. Normal mediastinum and dong. Normal visualized pulmonary arteries. Normal visualized aortic arch and descending thoracic aorta. Normal visualized thoracic spine. Normal visualized ribs, clavicles, and shoulders. There is no demonstrated abnormality of the visualized soft tissue structures of the upper abdomen. RAD/Chest 1 View (Portable) IMPRESSION: Normal x-ray examination of the chest. Electronically Signed: Dustin Bateman MD at 12:47 EDT ,
[2022-11-14 12:39] LABS: Anion Gap 4 (5-15); BUN 13 mg/dL (7-18); BUN/Creat Ratio 16.4 RATIO (10-20); Calcium,Total 9.1 mg/dL (8.5-10.1); Chloride 109 mmol/L (98-107); EST Glomerular Filtration Rate 91 mL/min (>60); Est Glom Filt Rate - Afr Amer 111 mL/min (>60); Glucose 98 mg/dL (74-106); Potassium 3.8 mmol/L (3.5-5.1); Sodium Level 139 mmol/L (136-145); Troponin-I HS (w/2H Reflex) 3 pg/mL (3.0-54.0)
[2022-11-14 13:15] VITALS: PULSE 75; RESP 20
[2022-11-14 14:17] LABS: Reflex Troponin-HS? (from REC) Y
[2022-11-14 14:49] LABS: Troponin-I HS < 3 pg/mL (3.0-54.0)
== END 2022-11-14 15:10 | disposition home or self-care (01) ==
PROVIDERS: Emergency Provider Emergency Medicine; Visit Provider Emergency Medicine
DX: R07.9 Chest pain, unspecified (principal); F41.9 Anxiety disorder, unspecified; R00.2 Palpitations; J45.909 Unspecified asthma, uncomplicated
CPT/HCPCS: 71045; 80048; 84484; 85025; 93005; 99285; A4216

== ENCOUNTER → 2022-11-22 | Outpatient (CLI) | payer MEDICAID, SELFPAY ==
--- NOTE | 2022-11-22 08:56 | BI_ITS ---
MAMMOGRAPHY - BILATERAL DIAGNOSTIC REASON FOR EXAM: Female, 27 years old. One and half month history of swelling in the left axillary region. PERTINENT HISTORY: TECHNIQUE: Digital bilateral breast monserrat (3D mammographic acquisition) in the CC and MLO projections. 2-D mediolateral oblique (MLO) and craniocaudad (CC) views of both breasts were obtained. CAD: Full Field Digital Mammography with Computer Added Detection was performed. COMPARISON: None. Baseline examination. FINDINGS: Breast Composition: The breasts are heterogeneously dense, which may obscure small masses. There are no dominant masses or suspicious calcifications. Small benign-appearing bilateral axillary lymph nodes. No other significant abnormalities are identified. BI/DIAG MAMM W/CAD, BILAT IMPRESSION: Negative diagnostic mammogram. With the patient''s history of swelling in the left axillary region, correlation with ultrasound is recommended. ASSESSMENT CATEGORY: BIRADS Category 0: Incomplete. Need additional imaging evaluation. A letter regarding these results will be sent to the patient by the facility within 30 days. Approximately 10% of breast cancers are not detected by mammography. A normal mammogram should not delay biopsy of a clinically suspicious abnormality. Electronically Signed: Dustin Bateman MD at 10:11 EDT ,
--- NOTE | 2022-11-22 08:56 | US_ITS ---
STUDY: ULTRASOUND BREAST - LEFT REASON FOR EXAM: Female, 27 years old. Left axillary swelling. TECHNIQUE: Axial and longitudinal images of the LEFT breast were performed with a high resolution ultrasound transducer. # OF IMAGES: 25 COMPARISON: Comparison is made with prior mammogram done earlier in the day. FINDINGS: LEFT Breast: The left axilla was examined with ultrasound. There is a 1.4 cm x 1.4 cm x 0.5 cm benign-appearing left axillary lymph node. US/Breast Limited Unilateral IMPRESSION: 1.4 cm x 1.4 cm x 0.5 cm benign-appearing left axillary lymph node. ASSESSMENT CATEGORY: BIRADS Category 2: Benign. A letter regarding these results will be sent to the patient by the facility within 30 days. Electronically Signed: Dustin Bateman MD at 11:03 EDT ,
== END | disposition home or self-care (01) ==
LOC: OPBI 08:55
PROVIDERS: Referring Provider Nurse Practitioner Family; Visit Provider Nurse Practitioner Family
DX: N64.4 Mastodynia (principal)
CPT/HCPCS: 77062; 76642; 77066; G0279

== ENCOUNTER 2023-09-20 17:26 | Emergency (ER) | payer SELFPAY ==
[2023-09-20 17:28] VITALS: BP 143/102; PULSE 85; RESP 16; TEMP 36.3; O2SAT 99; BMI 32.7
--- NOTE | 2023-09-20 18:23 | EX.ED.DYSGE1 ---
HPI <DIANE Kendall - Last Filed: 09/20/23 21:21> History of Present Illness Chief Complaint: Flank Pain Narrative Narrative: Patient presenting due to intermittent sharp left upper quadrant pain that radiates to her left back and left groin that she has had over the past week. Nothing seems to make this better or worse. She reports urinary pressure. She denies any history of kidney stones. She denies fevers, chills, dysuria, hematuria, nausea, vomiting, and diarrhea. PFSH <DIANE Kendall - Last Filed: 09/20/23 21:21> [facility] Medical History Anxiety and depression Asthma Chest pain Chronic neck and back pain Difficulty balancing Dyspnea Fatigue Hyperemesis gravidarum IBS (irritable bowel syndrome) Palpitations Severe headache Supervision of other normal Vaginal bleeding during Home Medications NK 09/05/22 [History Last Taken Unknown] Allergy/AdvReac Type Severity Reaction Status Date / Time Iodinated Contrast Media Allergy vomitting Verified 09/20/23 17:27 Family History Father VIJI (obstructive sleep apnea) Sister IBS (irritable bowel syndrome) Surgical History History of shoulder surgery (~2011) Social History adopted: No household members: children housing: house number of children: 2 current occupational status: employed pets and animals: No Smoking Status: Never smoker second hand exposure: No alcohol intake: current substance use type: does not use seatbelt use: always do you feel safe at home: Yes additional social history: [facility] of the [place] [facility] <DIANE Kendall - Last Filed: 09/20/23 21:21> ROS ED Constitutional Constitutional ED: Denies chills or fever(s) Cardiovascular Cardiovascular: Denies chest pain Respiratory/Chest Respiratory/Chest: Denies cough or dyspnea Gastrointestinal Gastrointestinal: Reports abdominal pain; Denies nausea or vomiting Genitourinary Genitourinary ED: Reports other Details: Feelings of pressure with urinating Musculoskeletal Musculoskeletal: Denies back pain Integumentary Denies rash Neurologic Neurologic: Denies weakness EXAM <DIANE Kendall - Last Filed: 09/20/23 21:21> Physical Exam Const Vital Signs: 09/20/23 17:28 09/20/23 19:27 09/20/23 20:11 Temperature 97.3 F L 97.8 F Temperature Source Temporal Pulse Rate 85 74 74 Respiratory Rate 16 18 18 Blood Pressure 143/102 H 115/83 H 115/83 H Blood Pressure Mean 115 93 93 Pulse Ox 99 99 99 Oxygen Delivery Method Room Air Room Air Positive well nourished, well developed and no apparent distress General Appearance ED: well developed HEENT Reports normocephalic and head/scalp atraumatic Mouth ED: Yes moist mucous membranes normal Eyes PERRL and EOMs intact bilaterally Neck full ROM and supple Chest Wall inspection of chest normal Resp normal respiratory effort and clear to auscultation bilaterally Cardio regular rate and regular rhythm GI non-distended and no masses GI Narrative: Minimal tenderness to the left upper quadrant and suprapubic area. No rigidity or guarding. Negative McBurney's point tenderness, negative Lara sign. Palpation: soft Back/Spine normal ROM and normal to inspection General Back: Negative for CVA tenderness Extremity normal to inspection and full ROM Neuro oriented x3, CN's II-XII intact bilaterally, moves all extremities, no focal motor deficits and no sensory deficits noted Sensorium / Orientation: awake and alert Psych mental status grossly normal and thought process normal Skin no rashes or lesions noted and no wounds <Dr. Nabor Cooper DO - Last Filed: 09/20/23 20:04> Physical Exam Const Vital Signs: 09/20/23 17:28 09/20/23 19:27 09/20/23 20:11 Temperature 97.3 F L 97.8 F Temperature Source Temporal Pulse Rate 85 74 74 Respiratory Rate 16 18 18 Blood Pressure 143/102 H 115/83 H 115/83 H Blood Pressure Mean 115 93 93 Pulse Ox 99 99 99 Oxygen Delivery Method Room Air Room Air MDM <DIANE Kendall - Last Filed: 09/20/23 21:21> MDM MDM Narrative Medical decision making narrative: Patient presenting due to left upper quadrant pain that radiates to her left back and left groin. She reports a sensation of pressure when urinating. She has negative CVA tenderness. Slightly tender in the left upper quadrant. Labs will be obtained. CT of the abdomen pelvis will be obtained to rule out kidney stone, spleen abnormality, and other etiology. Workup overall is unremarkable. I encouraged her to monitor her symptoms and to alternate Tylenol and ibuprofen for pain as needed. I encouraged close PCP follow-up and have given return instructions. She will be discharged home in stable condition and is comfortable with plan. Lab Data Labs: Laboratory Results - last 24 hr 09/20/23 09/20/23 18:30 18:35 WBC 10.3 RBC 4.80 Hgb 13.4 Hct 40.2 MCV 83.8 MCH 27.9 MCHC 33.3 RDW Std Deviation 37.0 RDW Coeff of Nichelle 12.2 Plt Count 346 MPV 9.3 Immature Gran % (Auto) 0.300 Neut % (Auto) 67.1 Lymph % (Auto) 24.3 [place] % (Auto) 6.8 Eos % (Auto) 1.1 Baso % (Auto) 0.4 Absolute Neuts (auto) 6.9 Absolute Lymphs (auto) 2.51 Nucleated RBC % 0 Sodium 141 Potassium 3.7 Chloride 107 Carbon Dioxide 28.0 Anion Gap 6 BUN 14 Creatinine 0.95 Estim Creat Clear Calc 84.08 Est GFR (MDRD) Af Amer 90 Est GFR (MDRD) Non-Af 74 BUN/Creatinine Ratio 14.8 Glucose 92 Calcium 9.1 Urine Color Straw Urine Clarity Clear Urine pH 6.5 Ur Specific [place] 1.010 Urine Protein Negative Urine Glucose (UA) Normal Urine Ketones Negative Urine Occult Blood Negative Urine Nitrite Negative Urine Bilirubin Negative Urine Urobilinogen Normal Ur Leukocyte Esterase Negative Urine RBC 0 SEEN Urine WBC 0 SEEN Ur Squamous Epith Cells 0-5 SEEN Urine Bacteria RARE Urine Mucus 0 SEEN Urine Test Negative Radiography Diagnostic Testing: Clinical Impression(s) from Imaging Studies Abdomen/Pelvis CT 09/20/23 18:28 IMPRESSION: No definite acute or significant abnormality seen. Electronically Signed: Eric Paige MD at 19:56 EDT , <Dr. Nabor Cooper, DO - Last Filed: 09/20/23 20:04> [facility] History & Record Review Discussion w/independent historian: Patient Lab Data Attestation: I reviewed the patient's lab results. Labs: Laboratory Results - last 24 hr 09/20/23 09/20/23 18:30 18:35 WBC 10.3 RBC 4.80 Hgb 13.4 Hct 40.2 MCV 83.8 MCH 27.9 MCHC 33.3 RDW Std Deviation 37.0 RDW Coeff of Nichelle 12.2 Plt Count 346 MPV 9.3 Immature Gran % (Auto) 0.300 Neut % (Auto) 67.1 Lymph % (Auto) 24.3 [place] % (Auto) 6.8 Eos % (Auto) 1.1 Baso % (Auto) 0.4 Absolute Neuts (auto) 6.9 Absolute Lymphs (auto) 2.51 Nucleated RBC % 0 Sodium 141 Potassium 3.7 Chloride 107 Carbon Dioxide 28.0 Anion Gap 6 BUN 14 Creatinine 0.95 Estim Creat Clear Calc 84.08 Est GFR (MDRD) Af Amer 90 Est GFR (MDRD) Non-Af 74 BUN/Creatinine Ratio 14.8 Glucose 92 Calcium 9.1 Urine Color Straw Urine Clarity Clear Urine pH 6.5 Ur Specific [place] 1.010 Urine Protein Negative Urine Glucose (UA) Normal Urine Ketones Negative Urine Occult Blood Negative Urine Nitrite Negative Urine Bilirubin Negative Urine Urobilinogen Normal Ur Leukocyte Esterase Negative Urine RBC 0 SEEN Urine WBC 0 SEEN Ur Squamous Epith Cells 0-5 SEEN Urine Bacteria RARE Urine Mucus 0 SEEN Urine Test Negative Radiography Diagnostic Testing: Clinical Impression(s) from Imaging Studies Abdomen/Pelvis CT 09/20/23 18:28 IMPRESSION: No definite acute or significant abnormality seen. Electronically Signed: Eric Paige MD at 19:56 EDT , Treatment and Re-Evaluation :: I have personally performed a face to face assessment of the patient and have reviewed the KARLA Note. I performed a substantive portion of the visit including all aspects of the following. My frausto findings include: History: 28-year-old female presenting with left upper quadrant pain radiating to the suprapubic region. Is been present for about 6 days. Worse with getting up and walking. She denies any urinary symptoms. She denies any change in bowel habits. No abdominal trauma or bruising. No vomiting or fever. She states she is never anything like this before. She notes some pain in the left flank as well. No recent viral URI-like symptoms Exam: Patient reports very focal tenderness to palpation in the left upper quadrant left middle and suprapubic. No rebound tenderness. Normal bowel sounds. The abdomen is soft. There are no rashes. No significant CVA tenderness Workup: Urinalysis CBC and BMP is normal. CT of the abdomen pelvis without contrast was also obtained and this is also read as negative. Given the location of her pain I do not think that this represents a splenic infarct or renal infarct that we need to do a CT with contrast. I do not see any bowel inflammation. No obvious ureterolithiasis. No obvious infection. This point I will have the patient continue to monitor her and have her follow-up with primary care if not improving return to the emergency department if symptoms Discharge Plan Triage Chief Complaint: Flank Pain ED Midlevel Provider: Evette Brown ED Provider: Nabor Cooper Dx/Rx/DC Orders Clinical Impression: Flank pain, Abdominal pain Instructions: Abdominal Pain Prescriptions: No Action NK Primary Care Provider: Care Physician,No Primary Referrals: Kimberly Garduno MD [Med Staff - Lumber Tailer] - 5-7 Days Care Physician,No Primary [Primary Care Provider] - Activity Restrictions/Additional Instructions: Follow-up with your PCP, if you do not have one, I have given you a referral for one. Return for any worsening of your symptoms. Disposition Disposition: Home, Self Care Discharge Date/Time: 09/20/23 20:12
--- NOTE | 2023-09-20 18:28 | CT_ITS ---
STUDY: CT ABDOMEN AND PELVIS WITHOUT CONTRAST REASON FOR EXAM: Female, 28 years old. kidney stone RADIATION DOSAGE (If Supplied By Facility): CTDIvol = ( 9.50 ) mGy, DLP = ( 465.27 ) mGycm TECHNIQUE: Transaxial images were obtained from the dome of the diaphragm to the symphysis pubis without oral contrast, and without intravenous contrast. Sagittal and coronal images were reconstructed. Individualized dose optimization techniques were used for this CT. COMPARISON: None. FINDINGS: The visualized lung bases are unremarkable. The visualized portions of the heart are within normal limits. Normal liver. Normal gallbladder and extrahepatic biliary system. Normal spleen. Normal pancreas. Normal bilateral adrenal glands. Normal right kidney. Normal left kidney. Normal visualized stomach. Normal small intestine. Normal colon. The appendix is visualized and appears normal. Normal abdominal aorta. Normal inferior vena cava. Normal retroperitoneum. Normal urinary bladder. Normal visualized uterus. Normal abdominal wall. Normal osseous structures. CT/Abdomen/Pelvis without Cont IMPRESSION: No definite acute or significant abnormality seen. Electronically Signed: Eric Paige MD at 19:56 EDT ,
[2023-09-20 18:42] LABS: Mucous, Urine 0 SEEN /hpf (<or=2+); Red Blood Cells-Urine 0 SEEN /hpf (0-5); White Blood Cells 0 SEEN /hpf (0-5)
[2023-09-20 18:46] LABS: Absolute Lymphocyte Count 2.51 X10^3/uL (0.83-4.51); Absolute Neutrophil Count 6.9 X10^3/uL (2.0-7.7); Basophil# 0.04 X10^3/uL; Basophil% 0.4 % (0-1); Eosinophil# 0.11 X10^3/uL; Eosinophils% 1.1 % (0-5); Hematocrit 40.2 % (37-47); Hemoglobin 13.4 g/dL (12.0-15.0); Lymphocyte # 2.51 X10^3/ul (0.83-4.51); Lymphocyte % 24.3 % (19-41); Mean Corp Hgb Conc 33.3 g/dL (32-36); Mean Corpuscular Hgb 27.9 pg (27.0-32.0); Mean Corpuscular Volume 83.8 fL (81-99); Mean Platelet Vol. 9.3 fl (6.2-12.0); Monocyte% 6.8 % (0-10); NRBC Flagged by Analyzer 0 % (0-5); Neutrophil # 6.93 X10^3/uL (2.7-7.7); Neutrophil % 67.1 % (47-70); Platelet Count 346 K/mm3 (150-450); RBC Distribution Width CV 12.2 % (11.6-14.6); White Blood Count 10.3 K/mm3 (4.4-11.0)
[2023-09-20 18:46] LABS: Color, Urine Straw (Yellow); Glucose, Dipstick Normal (Normal); Ketone-Dipstick Negative (Negative); Leukocyte Esterase-Dipstick Negative /ul (Negative); Nitrite-Dipstick Negative (Negative); Occult Blood-Urine Negative /ul (Negative); Protein-Dipstick Negative (Negative); Urine Bilirubin Dipstick Negative (Negative); Urine Clarity Clear (Clear); Urine Urobilinogen Normal (Normal); Urine pH 6.5 (5.0 - 8.0)
[2023-09-20 18:58] LABS: Bacteria RARE /hpf (None Seen); Internal QC Validated? YES +Cl - CLEAR BKGD; Pregnancy, Urine Negative Negative; Squamous Epithelial Cells - UA 0-5 SEEN /hpf (5-10)
[2023-09-20 19:01] LABS: Anion Gap 6 (5-15); BUN 14 mg/dL (7-18); BUN/Creat Ratio 14.8 RATIO (10-20); Calcium,Total 9.1 mg/dL (8.5-10.1); Chloride 107 mmol/L (98-107); Creatinine, Serum 0.95 mg/dL (0.55-1.02); EST Glomerular Filtration Rate 74 mL/min (>60); Est Glom Filt Rate - Afr Amer 90 mL/min (>60); Estimated Creatinine Clearance 84.08 ml/min; Glucose 92 mg/dL (74-106); Potassium 3.7 mmol/L (3.5-5.1); Sodium Level 141 mmol/L (136-145)
[2023-09-20 19:27] VITALS: BP 115/83; PULSE 74; RESP 18; O2SAT 99
[2023-09-20 20:11] VITALS: BP 115/83; PULSE 74; RESP 18; TEMP 36.6; O2SAT 99
== END 2023-09-20 20:12 | disposition home or self-care (01) ==
PROVIDERS: Physician Assistant; Emergency Provider Emergency Medicine; Visit Provider Emergency Medicine
DX: R10.12 Left upper quadrant pain (principal); R10.812 Left upper quadrant abdominal tenderness
CPT/HCPCS: 74176; 80048; 81001; 81025; 85025; 99282; A4216

== ENCOUNTER 2025-06-16 16:00 | Emergency (ER) | payer SELFPAY ==
[2025-06-16 16:00] VITALS: BP 152/87; PULSE 97; RESP 14; TEMP 36.6; O2SAT 100; BMI 34.1
--- NOTE | 2025-06-16 21:40 | CM.ED ---
Social Work SW was asked to meet with patient by ED physician as patient was visibly upset over diagnosis given. SW entered patients room, introduced self, explained role in hospital and explained reason for visit. Patient remained agitated, sat on bed with arms crossed and would only respond to SW in short answers. Patient stated that doctor refused to test her blood or urine, when asked what she suspected she may need testing for, patient stated she had had mono and other illnesses recently and wondered if they were returning. SW stated that the doctor felt she was safe for discharge, patient states that she understood that and was told to come back if her rash gets worse. Patient expressed frustration with a return visit stating she did not have any insurance at this time and states Ill just have to go somewhere else. SW asked if she felt she would qualify for Medicaid, patient stated she had already applied. SW provided patient with information for [facility] should she require any additional services. Renay Allen, TECHNICAL FELLOW, MEDICAL APPLIANCE MAKER
--- NOTE | 2025-06-17 00:04 | EX.ED.DYSGE1 ---
HPI History of Present Illness Chief Complaint: Rash Narrative Narrative: Patient is a 29-year-old female presenting to the emergency department for a rash. Patient has no significant past medical history. She states that she noticed the rash yesterday. States it was initially red under her bra line however now it is all across to her abdomen. States that she is concerned about shingles. She denies any new detergents, clothing, moisturizers or body wash. States that it is itching. States that her kids are sick at home and she has similar viral type symptoms as them. Has not tried anything for the rash at home prior to arrival. She is also endorsing numbness to right underneath her left eye which she states is common when she has anxiety. [facility] Medical History IBS (irritable bowel syndrome) Asthma Palpitations Dyspnea Anxiety and depression Vaginal bleeding during Hyperemesis gravidarum Supervision of other normal Chronic neck and back pain Difficulty balancing Chest pain Severe headache Fatigue Home Medications ?Medication ?Instructions ?Recorded ?Last Taken ?Type hydrocortisone 1 % topical cream 1 applic topical TID PRN rash 06/16/25 Unknown Rx #28.35 grams hydrocortisone 1 % topical cream 1 applic topical TID PRN rash 06/16/25 Unknown Rx #28.35 grams Allergy/AdvReac Type Severity Reaction Status Date / Time Iodinated Contrast Media Allergy vomitting Verified 06/16/25 16:03 Family History Father VIJI (obstructive sleep apnea) Sister IBS (irritable bowel syndrome) Surgical History History of shoulder surgery (~2011) Social History adopted: No household members: children housing: house number of children: 2 current occupational status: employed pets and animals: No Smoking Status: Never smoker second hand exposure: No alcohol intake: current substance use type: does not use seatbelt use: always do you feel safe at home: Yes additional social history: [place] of the [facility] ED ROS Narrative See HPI EXAM Physical Exam Narrative Exam Narrative: Vital signs: Reviewed General: Alert and oriented x 3. No acute distress. Well-appearing, nontoxic. HEENT: Head is normocephalic and atraumatic, sinuses nontender, pupils equal round and reactive. Nares are patent. Oropharynx and throat exams normal. No mucosal lesions. Neck: Supple without lymphadenopathy nontender Cardiovascular: Regular rate and rhythm, no murmurs. No rubs or gallops. Normal S1 and S2 Respiratory: Clear to auscultation bilaterally. No wheezes, rales, rhonchi Abdominal: Soft and nontender. Normal bowel sounds. No guarding or rebound. Nonsurgical abdomen Extremities: No tenderness. No bruising. Normal range of motion. Normal sensation. Skin: There is a maculopapular rash scattered across the abdomen. There are no vesicles or bullae. Negative Nikolsky sign. There is no petechiae. Rash is on both sides of the abdomen is not in 1 specific dermatome. It does cross midline. The rest of the physical exam is unremarkable Const Vital Signs: 06/16/25 16:00 Temperature 98 F Temperature Source Oral Pulse Rate 97 Respiratory Rate 14 Blood Pressure 152/87 H Blood Pressure Mean 108 Pulse Ox 100 Oxygen Delivery Method Room Air MDM MDM MDM Narrative Medical decision making narrative: Patient is a 29-year-old female presenting to the emergency department for a rash for 2 days. Patient was seen and examined. Vitals are stable. Patient resting in bed comfortably no acute distress. Patient's exam is consistent with a contact dermatitis. She was offered Claritin here. Patient is very concerned about shingles and I explained why her clinical picture is not consistent with this. Her rash crosses midline and has no vesicles. It is not consistent with a shingles rash. Patient was very frustrated with my diagnosis and states that I need to test my urine for shingles. I explained that this is not how shingles is tested for her and explained that I would need to unroof a vesicular lesion which she does not have to test for this. I recommended Claritin and Benadryl at home for symptomatic control and to return if her rash worsens or if she develops systemic symptoms. Will prescribe her with hydrocortisone cream to use 3 times daily for the rash. Given the patient's clear frustration with her diagnosis I did have social work speak with her and the patient was very short with social work as well and does not want have to come back due to her not having insurance. I did discuss return precautions with the patient. Patient discharged from the Emergency Department. I do not feel that the patient's evaluation reveals any acute reason for admission at this time. I instructed them to either follow-up with their primary care physician or promptly return to the Emergency Department for reevaluation should symptoms worsen or new symptoms develop. I explained what symptoms would indicate the need to return to the emergency department. Shared decision making was used. The patient voiced understanding of the treatment plan and is agreeable with it. Clinical impression Contact dermatitis History & Record Review Discussion w/independent historian: Patient Discharge Plan Triage Chief Complaint: Rash ED Provider: Angie Rodríguez Dx/Rx/DC Orders Clinical Impression: Contact dermatitis Instructions: ED Contact Dermatitis Prescriptions: New hydrocortisone 1 % cream 1 applic topical TID PRN (Reason: rash) Qty: 28.35 0RF hydrocortisone 1 % cream 1 applic topical TID PRN (Reason: rash) Qty: 28.35 0RF Primary Care Provider: Care Physician,No Primary Referrals: Latanya Ayala MD [Med Staff - Commercial Estimator, Internal Medicine] - 1 Week if not improving Care Physician,No Primary [Primary Care Provider, Medical] Activity Restrictions/Additional Instructions: Take Claritin during the day or Benadryl at night to help with itching. You can apply the hydrocortisone cream 3 times a day as needed. If the rash worsens or you develop any new or worsening symptoms return to the emergency department or follow-up with your primary care doctor soon as possible. Your evaluation in the Emergency Department did not reveal any acute reason for admission. However, I want to emphasize that you may be early in the course of a disease process or illness even if it is not present. For this reason you should follow-up within 24 hours for reevaluation with either your primary care physician or if necessary back here in the Emergency Department. You should return to the Emergency Department immediately if your symptoms worsen or new symptoms develop. Print Language: Thai Disposition Disposition: Home, Self Care Discharge Date/Time: 06/16/25 18:08
== END 2025-06-16 18:08 | disposition home or self-care (01) ==
PROVIDERS: Emergency Provider Student in an Organized Health Care Education/Training Program; Visit Provider Student in an Organized Health Care Education/Training Program
DX: L25.9 Unspecified contact dermatitis, unspecified cause (principal); J45.909 Unspecified asthma, uncomplicated
CPT/HCPCS: 99282